=== PATIENT | male | born 1960 | race Caucasian/White ===

== ENCOUNTER 2018-10-10 09:15 | Day surgery (SDC) | payer BC ==
[~2018-10-10 09:15] MED LIST: Lactated Ringers 1,000 ML IV ONE; Lactated Ringers 1,000 ML IV SCH
[2018-10-10] MEDS ORDERED: Ketamine HCl 50 MG/ML ONE (10:24)
[2018-10-10] MEDS ORDERED: DIPRIVAN 200 MG/20 ML IV ONE ×2 (10:24→12:44)
[2018-10-10 13:33] VITALS: O2SAT 98
[2018-10-10 14:14] VITALS: BP 143/85; PULSE 88
[2018-10-10 15:25] LABS: 027 TOX PROD PRESUMPTIVE NEGATIVE (NEGATIVE); TOXIGENIC C. DIFF ORG NEGATIVE (NEGATIVE)
--- NOTE | 2018-10-11 08:46 | OP ---
PROCEDURE DATE/TIME: 10/10/2018 1230 PREOPERATIVE DIAGNOSIS: History of polyps, needs further surveillance and recent exacerbation of hemorrhoidal disease. POSTOPERATIVE DIAGNOSES: 1) Moderate internal and external hemorrhoidal disease. 2) Mild sigmoid colitis from 20 to 30 cm. 3) Mild diverticulosis. PROCEDURE: Colonoscopy with cold forceps biopsies. PROCEDURE PERFORMED BY: Gita Ruiz M.D. COMPLICATIONS: None. ESTIMATED BLOOD LOSS: Minimal. ANESTHESIA: MAC. SPECIMEN: Sigmoid colon 20 to 30 cm. HISTORY: This is a 57 year-old gentleman who has a significant history of polyps in the past. He presents for colonoscopy. Risks, benefits, alternatives have been discussed with him preoperatively as well as H&P and consent. He has been having some more symptoms of his hemorrhoids recently. DESCRIPTION OF PROCEDURE: A complete time out was performed. We then did a rectal exam. The patient has an enlarged posterior internal hemorrhoid and then he has an anterior external hemorrhoid with some inflammation. These are both inflamed. They do have some skin changes likely secondary to the inflammation and I would recommend for these to be removed. The scope was then inserted and gently advanced to the level of the cecum. He had some mild colitis from 20 to 30 cm. This did not appear to be associated at all specifically with any diverticula. Just some very mild colitis throughout this region. Outside of this he had no further colitis. The remainder of the colon looked normal. We carefully withdrew the scope. After evaluating the cecum, his appendiceal orifice and ileocecal valve looked normal. The scope was then completely withdrawn taking a circumferential view. Liquid stool throughout the colon was irrigated and suctioned. Overall the view was satisfactory. I re-visualized the area of the colitis. We took multiple cold forceps biopsies and sent these to pathology to rule out any underlying cause and then he does have the mild diverticulosis as well. I also did intubate his terminal ileum and take a biopsy here. His terminal ileum looked completely normal but we did this due to the colitis and he has had colitis incidentally in the past and we are not sure what has caused this so this was done to rule out any underlying microscopic Crohn's disease pathology. All sites from biopsies were hemostatic. The scope was able to be completely removed. The patient tolerated the procedure very well. There were no immediate complications. At this time I am going to tentatively place him on a five year colonoscopy interval. He did not have any polyps at this time and he will follow up with me for biopsy results as well as to schedule hemorrhoidectomy. PLAN: Colonoscopy in five years. Schedule hemorrhoidectomy. Await biopsy results.
[2018-10-11 13:27] LABS: Source: Feces
[2018-10-11 14:27] LABS: Giardia Antigen EIA Negative (Negative)
== END 2018-10-10 13:55 | disposition home or self-care (01) ==
LOC: SDC 09:15
PROVIDERS: ATTEND Surgery
DX: Z09 Encounter for follow-up examination after completed treatment for conditions other than malignant neoplasm (principal); K57.30 Diverticulosis of large intestine without perforation or abscess without bleeding; K52.9 Noninfective gastroenteritis and colitis, unspecified; Z86.010 Personal history of colon polyps; K64.4 Residual hemorrhoidal skin tags; K64.8 Other hemorrhoids
CPT/HCPCS: 36415; 87045; 87046; 87177; 87209; 87335; 87493; J2704

== ENCOUNTER 2018-11-01 15:17 | Emergency (ER) | payer BC ==
[2018-11-01 15:35] LABS: BASOPHIL % 0.9 % (0.0-0.4); Basophil (Absolute #) 0.09 (0-0.4); Eosinophil (Absolute #) 0.69 (0-0.5); Granulocyte Absolute (ANC) 6.65 (1.4-6.9); Granulocytes % 67.5 % (36.0-66.0); Hematocrit 49.1 % (42-50); Lymphocyte (Absolute #) 1.67 (1.0-4.6); Mean Cell Volume 85.2 fl (78-100); Mean Corpuscular Hemoglobin 29.5 pg (26-32); Mean Corpuscular Hgb Concent. 34.6 g/dl (32-36); Mean Platelet Volume 9.9 fl (6-9.5); Monocyte (Absolute #) 0.75 (0.0-1.3); Monocytes % 7.6 % (0.0-12.0); Platelet Count 251 K/mm3 (150-450); Red Blood Count 5.76 M/mm3 (4.1-5.6); Red Cell Distribution Width 12.9 % (11.5-14.0); White Blood Count 9.9 K/mm3 (4.0-10.5)
[2018-11-01] MEDS ORDERED: Zofran 4 MG/2 ML VIAL ONE (15:39)
[2018-11-01 15:47] LABS: ALBUMIN 4.6 g/dL (3.5-5.0); ANION GAP 14.4 MEQ/L (5-15); BILIRUBIN,TOTAL 1.1 mg/dL (0.2-1.3); Calcium 10.4 mg/dL (8.4-10.2); Creatinine 1 1.35 mg/dL (0.66-1.25); Potassium 3.9 mmol/L (3.5-5.1); Total Protein 8.2 g/dL (6.3-8.2)
[2018-11-01] MEDS ORDERED: Nitrostat 0.4 MG (ED) SL ONE ×3 (15:48→19:09)
[2018-11-01] MEDS ORDERED: BABY ASPIRIN 81 MG CHEW PO ONE (15:50)
[2018-11-01 15:51] VITALS: O2SAT 99
[2018-11-01] MEDS ORDERED: MORPHINE SULFATE 4 MG INJ IV ONE (15:53)
[2018-11-01] MEDS ORDERED: MORPHINE SULFATE 4 MG INJ ONE (15:54)
[2018-11-01] MEDS ORDERED: BABY ASPIRIN 81 MG CHEW ONE (15:54)
[2018-11-01 16:05] VITALS: BP 136/92; PULSE 72
[2018-11-01] MEDS ORDERED: Sodium Chloride 0.9% 1000 ML 1,000 ML ONE (16:17)
--- NOTE | 2018-11-01 16:21 | ERPHSYRPT ---
- History of Present Illness Time Seen by Provider: 11/01/18 15:35 Historian: patient Exam Limitations: no limitations Patient Subjective Stated Complaint: Sudden onset pain to medial chest, left shoulder and arm pain, pain between shoulder blades, hx of 1 stent which has been placed 3 times in the maker Triage Nursing Assessment: Pt walked into the ER stating that something was sitting on his chest, upon getting here he began having pain in his left arm and shoulder that radiated between his shoulder blades, upon arrival he was tachycardic and hypertensive and was given a nitro and 4 baby aspirin when approx 3 minutes later he began vomiting and became very diaphoretic, pulses normal, skin turning slightly marin Physician History: At work today; heavy CP - weight on chest; nauseated, diaphoretic - history of stents X 3 Activities at Onset: activity (Had been shoveling prior - resting when this hit him) Quality: pressure, tightness Location: substernal, shoulder (Left), back Chest Pain Radiation: arm (Left) Severity of Pain-Max: moderate Severity of Pain-Current: moderate Nitro Today/Relief: no nitro taken today Aspirin Treatment Today: 81 mg x 3, provided by ED Allergies/Adverse Reactions: No Known Drug Allergies Allergy (Verified 11/04/18 11:14) Home Medications: Aspirin EC 81 mg [Ecotrin 81 mg] 81 mg PO DAILY 11/04/18 [History] Atorvastatin Calcium [Lipitor] 80 mg PO HS 11/04/18 [History] Lisinopril 20 mg [Zestril 20 MG] 20 mg PO DAILY 11/04/18 [History] Metoprolol Tartrate 25 mg [Lopressor 25MG Tab] 25 mg PO BID 11/04/18 [ History] Nitroglycerin 0.4 mg Tablet [Nitrostat 0.4 MG Tablet] 0.4 mg SL UD [History] Ticagrelor [Brilinta] 90 mg PO BID 11/04/18 [History] Hx Tetanus, Diphtheria Vaccination/Date Given: No Hx Influenza Vaccination/Date Given: Yes Hx Pneumococcal Vaccination/Date Given: No - Review of Systems Constitutional: Malaise Respiratory: Dyspnea (uncomfortable breathing with apparent CP) Cardiac: Chest Pain (to L shoulder and L arm) All Other Systems: Reviewed and Negative - Past Medical History Pertinent Past Medical History: Yes Neurological History: No Pertinent History ENT History: No Pertinent History Cardiac History: Angina, Hypertension, Myocardial Infarction ([place]) Respiratory History: No Pertinent History Endocrine Medical History: No Pertinent History Musculoskeletal History: Arthritis GI Medical History: Other History: No Pertinent History Psycho-Social History: No Pertinent History Male Reproductive Disorders: No Pertinent History Other Medical History: FELL 20' IN 1997 WITH RESULTANT L3-L4 FXS/ RC TEAR. SPONDYLOLISTHESIS. 3 CARDIAC STENTS - 2010/2011/2012; CARDIAC CATH , colonoscopy, - Past Surgical History Past Surgical History: Yes Neuro Surgical History: No Pertinent History Cardiac: Cardiac Catheterization, Cardiac Stent Respiratory: No Pertinent History Gastrointestinal: Appendectomy Genitourinary: No Pertinent History Musculoskeletal: Orthopedic Surgery Male Surgical History: No Pertinent History Other Surgical History: left knee arthroscopy and right rotator cuff repair, colonoscopy with bx. right hip replacement - Social History Smoking Status: Never smoker Exposure to second hand smoke: No Drug Use: none Patient Lives Alone: Yes - Nursing Vital Signs Nursing Vital Signs: Initial Vital Signs Pulse Rate 107 H 11/01/18 15:28 Respiratory Rate 12 11/01/18 15:28 Blood Pressure 182/123 11/01/18 15:28 O2 Sat by Pulse Oximetry 96 11/01/18 15:28 Pain Scale Pain Intensity 2 - Physical Exam General Appearance: moderate distress (very uncomfortable feeling - heavy weight on chest), alert Neck Exam: normal inspection, full range of motion Respiratory Exam: normal breath sounds, lungs clear, airway intact Cardiovascular Exam: regular rate/rhythm, normal peripheral pulses, tachycardia , No edema Gastrointestinal/Abdomen Exam: soft Extremity Exam: normal inspection, normal range of motion Neurologic Exam: alert, oriented x 3, cooperative Skin Exam: normal color, warm, diaphoresis SpO2 Interpretation: normal SpO2: 99 O2 Delivery: Room Air - Course Nursing assessment & vital signs reviewed: Yes EKG Interpreted by Me: RATE ([id number]), Sinus Tach, NORMAL QRS, NORMAL ST-T - Radiology Exams Chest X-ray Interpretation: Interpreted by me, Negative Ordered Tests: Medication Summary Discontinued Medications Generic Name Dose Route Start Last Admin Trade Name Freq PRN Reason Stop Dose Admin Aspirin 324 mg 11/01/18 15:50 11/01/18 15:51 Baby Aspirin 81 Mg Chew PO 11/01/18 15:51 324 mg STAT ONE Administration Aspirin Confirm 11/01/18 15:54 Baby Aspirin 81 Mg Chew Administered 11/01/18 15:55 Dose 324 mg .ROUTE .STK-MED ONE Sodium Chloride Confirm 11/01/18 16:17 Sodium Chloride 0.9% 1000 Ml Administered 11/01/18 16:18 Dose 1,000 mls @ ud .ROUTE .STK-MED ONE Morphine Sulfate 4 mg 11/01/18 15:53 11/01/18 15:59 Morphine Sulfate 4 Mg Inj IV 11/01/18 15:54 4 mg STAT ONE Administration Morphine Sulfate Confirm 11/01/18 15:54 Morphine Sulfate 4 Mg Inj Administered 11/01/18 15:55 Dose 4 mg .ROUTE .STK-MED ONE Nitroglycerin 0.4 mg 11/01/18 15:48 11/01/18 15:51 Nitrostat 0.4 Mg (Ed) SL 11/01/18 15:49 0.4 mg STAT ONE Administration Nitroglycerin Confirm 11/01/18 15:54 Nitrostat 0.4 Mg (Ed) Administered 11/01/18 15:55 Dose 0.4 mg SL .STK-MED ONE Nitroglycerin Confirm 11/01/18 19:09 Nitrostat 0.4 Mg (Ed) Administered 11/01/18 19:10 Dose 0.4 mg SL .STK-MED ONE Ondansetron HCl Confirm 11/01/18 15:39 Zofran 4 Mg/2 Ml Vial Administered 11/01/18 15:40 Dose 4 mg .ROUTE .STK-MED ONE Lab/Rad Data: Laboratory Result Diagrams 11/01/18 15:32 11/01/18 15:32 Laboratory Results 11/01/18 11/01/18 11/01/18 Range/Units 15:32 15:32 15:32 WBC 9.9 (4.0-10.5) K/mm3 RBC 5.76 H (4.1-5.6) M/mm3 Hgb 17.0 (12.5-18.0) gm/dl Hct 49.1 (42-50) % MCV 85.2 (78-100) fl MCH 29.5 (26-32) pg MCHC 34.6 (32-36) g/dl RDW 12.9 (11.5-14.0) % Plt Count 251 (150-450) K/mm3 MPV 9.9 H (6-9.5) fl Gran % 67.5 H (36.0-66.0) % Eos # (Auto) 0.69 H (0-0.5) Absolute Lymphs (auto) 1.67 (1.0-4.6) Absolute Monos (auto) 0.75 (0.0-1.3) Lymphocytes % 17.0 L (24.0-44.0) % Monocytes % 7.6 (0.0-12.0) % Eosinophils % 7.0 H (0.00-5.0) % Basophils % 0.9 (0.0-0.4) % Absolute Granulocytes 6.65 (1.4-6.9) Basophils # 0.09 (0-0.4) Sodium 142 (137-145) mmol/L Potassium 3.9 (3.5-5.1) mmol/L Chloride 109 H (98-107) mmol/L Carbon Dioxide 23 (22-30) mmol/L Anion Gap 14.4 (5-15) MEQ/L BUN 17 (9-20) mg/dL Creatinine 1.35 H (0.66-1.25) mg/dL Estimated GFR 57.5 ML/MIN Glucose 104 (74-106) mg/dL Calcium 10.4 H (8.4-10.2) mg/dL Total Bilirubin 1.10 (0.2-1.3) mg/dL AST 55 (17-59) U/L ALT 52 H (0-50) U/L Alkaline Phosphatase 71 (38-126) U/L Troponin I 0.015 (0.000-0.034) ng/mL Serum Total Protein 8.2 (6.3-8.2) g/dL Albumin 4.6 (3.5-5.0) g/dL - Progress Progress Note: 11/01/18 16:32 Initial EKG sinus tachy - no ST elevation; got ASA, NTG - BP dropped significantly with NTG. EKG #2 non specific; after BP drop EKG #3 (Right Sided ) and #4 done...slight ST elevation Lead II and V4, V5. 11/05/18 21:43 Faxed EKG to [facility]; agree probable Stemi - Dr. 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 Discussed with Dr.: Other (Dr. Harris/Jade) Will see patient in: other (slabbing machine operator [facility]) - Departure Departure Disposition: Transfer ([facility] refuse laborer) Clinical Impression: STEMI (ST elevation myocardial infarction) Qualifiers: Involved coronary artery: unspecified coronary artery Qualified Code(s): I21.3 - ST elevation (STEMI) myocardial infarction of unspecified site Condition: Serious Critical Care Time: Yes Critical Care Time(excluding separately billable procedures): Critical 30-74 mins (Clinical picture eval, EKG reviews, discussion with [facility]/Uke Operator) Referrals: DANNIELLE WAGNER MD [Primary Care Provider] -
--- NOTE | 2018-11-01 16:38 | XRAY ---
Indication: Chest pain. Comparison: June 26, 2015. Portable chest is clear. Heart is not enlarged again with coronary stent graft. Bony thorax intact. No new/acute findings. Impression: Nonacute chest.
== END 2018-11-01 16:23 | disposition short-term general hospital (02) ==
LOC: ED 15:17
DX: I21.3 ST elevation (STEMI) myocardial infarction of unspecified site (principal)
CPT/HCPCS: 36000; 36415; 71045; 80053; 84484; 85025; 93005; 93041; 96374; 96375; 99285; J2270; J2405; A9270-GY

== ENCOUNTER 2018-11-04 10:31 | Emergency (ER) | payer BC ==
--- NOTE | 2018-11-04 11:08 | ERPHSYRPT ---
- History of Present Illness Time Seen by Provider: 11/04/18 10:50 Source: patient, family Exam Limitations: no limitations Physician History: Patient has had difficulty with elevated blood pressure today. Patient had a STEMI 3 days ago and was started on multiple antihypertensive medications. Patient had a headache this morning, but denies any other symptoms. Timing/Duration: today, hour(s) (2) Quality: aching Severity of Pain-Max: moderate Severity of Pain-Current: mild Recent Head Trauma: no recent headache/trauma Modifying Factors: Improves With: other (patient has been taking his medication) . Worsens With: cold therapy, exposure to light, immobilization, medication, movement, rest, noise, position Associated Symptoms: No confusion, No dizziness, No fatigue, No facial pain, No fever/chills, No flushing, No light-headedness, No loss of consciousness, No nausea/vomiting, No nasal congestion, No nasal drainage, No neck pain, No numbness in legs/feet, No rash, No sweating, No scotoma, No seizures, No sinus infection, No sensitive to light, No speech problems, No stiff neck, No trouble walking, No vision changes, No visual disturbance, No weakness Previous symptoms: no prior history Allergies/Adverse Reactions: No Known Drug Allergies Allergy (Verified 11/04/18 11:14) Home Medications: Aspirin EC 81 mg [Ecotrin 81 mg] 81 mg PO DAILY 11/04/18 [History] Atorvastatin Calcium [Lipitor] 80 mg PO HS 11/04/18 [History] Lisinopril 20 mg [Zestril 20 MG] 20 mg PO DAILY 11/04/18 [History] Metoprolol Tartrate 25 mg [Lopressor 25MG Tab] 25 mg PO BID 11/04/18 [ History] Nitroglycerin 0.4 mg Tablet [Nitrostat 0.4 MG Tablet] 0.4 mg SL UD [History] Ticagrelor [Brilinta] 90 mg PO BID 11/04/18 [History] Hx Tetanus, Diphtheria Vaccination/Date Given: No Hx Influenza Vaccination/Date Given: Yes Hx Pneumococcal Vaccination/Date Given: No - Review of Systems Constitutional: No Fever, No Chills Eyes: No Symptoms, No Eye Pain, No Eye Redness, No Photophobia, No Vision Changes Ears, Nose, & Throat: No Symptoms, No Nose Congestion, No Sinus Drainage, No Mouth Swelling, No Throat Pain, No Throat Swelling, No Painful Swallowing Respiratory: No Cough, No Dyspnea, No Dyspnea on Exertion (REYNA) Cardiac: No Chest Pain, No Edema, No Syncope Abdominal/Gastrointestinal: No Abdominal Pain, No Nausea, No Vomiting, No Diarrhea Genitourinary Symptoms: No Dysuria, No Hematuria, No Urinary Retention Musculoskeletal: No Back Pain, No Neck Pain Skin: No Rash Neurological: No Dizziness, No Focal Weakness, No Sensory Changes Psychological: No Symptoms Endocrine: No Symptoms Hematologic/Lymphatic: No Easy Bleeding, No Easy Bruising All Other Systems: Reviewed and Negative - Past Medical History Pertinent Past Medical History: Yes Neurological History: No Pertinent History ENT History: No Pertinent History Cardiac History: Angina, Hypertension, Myocardial Infarction ([place]) Respiratory History: No Pertinent History Endocrine Medical History: No Pertinent History Musculoskeletal History: Arthritis GI Medical History: Other History: No Pertinent History Psycho-Social History: No Pertinent History Male Reproductive Disorders: No Pertinent History Other Medical History: FELL 20' IN 1997 WITH RESULTANT L3-L4 FXS/ RC TEAR. SPONDYLOLISTHESIS. 3 CARDIAC STENTS - 2010/2011/2012; CARDIAC CATH , colonoscopy, - Past Surgical History Past Surgical History: Yes Neuro Surgical History: No Pertinent History Cardiac: Cardiac Catheterization, Cardiac Stent Respiratory: No Pertinent History Gastrointestinal: Appendectomy Genitourinary: No Pertinent History Musculoskeletal: Orthopedic Surgery Male Surgical History: No Pertinent History Other Surgical History: left knee arthroscopy and right rotator cuff repair, colonoscopy with bx. right hip replacement - Social History Smoking Status: Never smoker Exposure to second hand smoke: No Drug Use: none Patient Lives Alone: Yes - Nursing Vital Signs Nursing Vital Signs: Initial Vital Signs Temperature 98.5 F 11/04/18 10:34 Pulse Rate 60 11/04/18 10:34 Respiratory Rate 20 11/04/18 10:34 Blood Pressure 183/102 11/04/18 10:34 O2 Sat by Pulse Oximetry 99 11/04/18 10:34 Pain Scale Pain Intensity 0 - Physical Exam General Appearance: no apparent distress Eye Exam: PERRL/EOMI Ears, Nose, Throat Exam: normal ENT inspection, moist mucous membranes Neck Exam: normal inspection, supple, full range of motion, No meningismus Respiratory Exam: normal breath sounds, lungs clear Cardiovascular Exam: regular rate/rhythm, normal heart sounds Gastrointestinal/Abdominal Exam: soft, No tenderness, No distention Back Exam: normal inspection, normal range of motion Mental Status Exam: alert, oriented x 3, cooperative store stocker Exam: normal speech, PERRL, No facial droop Coordination/Gait Exam: normal cerebellar function Motor/Sensory Exam: no motor deficit, no sensory deficit Skin Exam: normal color, warm, dry, No rash - Course Nursing assessment & vital signs reviewed: Yes EKG Interpreted by Me: RATE (65), Sinus Rhythm, NORMAL AXIS, NORMAL INTERVALS, NORMAL QRS, NORMAL ST-T - CT Exams Head CT Interpretation: Negative, No/Intracranial Hemorrhag, Other (Per Radiologist Interpretation, negative for any signs of mass, hemorrhage or ischemia or any other abnormalities) Ordered Tests: Active Orders 24 hr Category Date Time Status Shirt Sewer STAT Care 11/04/18 11:01 Active EKG-ER Only STAT Care 11/04/18 11:00 Active IV Insertion STAT Care 11/04/18 11:00 Active HEAD WITHOUT CONTRAST [CT] Stat Exams 11/04/18 11:02 Completed CBC W DIFF Stat Lab 11/04/18 11:10 Completed CK-Creatinine Phosphokinase Stat Lab 11/04/18 11:10 Completed CMP Stat Lab 11/04/18 11:10 Completed NT PRO BNP Stat Lab 11/04/18 11:10 Completed PROTIME WITH INR Stat Lab 11/04/18 11:10 Received PTT Stat Lab 11/04/18 11:10 Received TROPONIN Q3H Lab 11/04/18 11:10 Completed TROPONIN Q3H Lab 11/04/18 14:15 Ordered TROPONIN Q3H Lab 11/04/18 17:15 Ordered TROPONIN Q3H Lab 11/04/18 20:15 Ordered TROPONIN Q3H Lab 11/04/18 23:15 Ordered Medication Summary Discontinued Medications Generic Name Dose Route Start Last Admin Trade Name Freq PRN Reason Stop Dose Admin Hydralazine HCl 10 mg 11/04/18 11:00 11/04/18 11:34 Apresoline 20 Mg/Ml Inj IV 11/04/18 11:01 10 mg STAT ONE Administration Hydralazine HCl Confirm 11/04/18 11:30 Apresoline 20 Mg/Ml Inj Administered 11/04/18 11:31 Dose 20 mg .ROUTE .STK-MED ONE Lab/Rad Data: Laboratory Result Diagrams 11/04/18 11:10 11/04/18 11:10 Laboratory Results 11/04/18 11/04/18 11/04/18 Range/Units 11:10 11:10 11:10 WBC 6.9 (4.0-10.5) K/mm3 RBC 5.48 (4.1-5.6) M/mm3 Hgb 16.2 (12.5-18.0) gm/dl Hct 48.5 (42-50) % MCV 88.5 (78-100) fl MCH 29.6 (26-32) pg MCHC 33.4 (32-36) g/dl RDW 13.0 (11.5-14.0) % Plt Count 225 (150-450) K/mm3 MPV 10.1 H (6-9.5) fl Gran % 66.7 H (36.0-66.0) % Eos # (Auto) 0.79 H (0-0.5) Absolute Lymphs (auto) 0.91 L (1.0-4.6) Absolute Monos (auto) 0.55 (0.0-1.3) Lymphocytes % 13.2 L (24.0-44.0) % Monocytes % 8.0 (0.0-12.0) % Eosinophils % 11.5 H (0.00-5.0) % Basophils % 0.6 (0.0-0.4) % Absolute Granulocytes 4.60 (1.4-6.9) Basophils # 0.04 (0-0.4) Sodium 141 (137-145) mmol/L Potassium 4.1 (3.5-5.1) mmol/L Chloride 103 (98-107) mmol/L Carbon Dioxide 30 (22-30) mmol/L Anion Gap 12.7 (5-15) MEQ/L BUN 13 (9-20) mg/dL Creatinine 1.11 (0.66-1.25) mg/dL Estimated GFR > 60.0 ML/MIN Glucose 98 (74-106) mg/dL Calcium 9.9 (8.4-10.2) mg/dL Total Bilirubin 1.10 (0.2-1.3) mg/dL AST 38 (17-59) U/L ALT 46 (0-50) U/L Alkaline Phosphatase 61 (38-126) U/L Creatine Kinase 90 (55-170) U/L Troponin I 0.844 H* (0.000-0.034) ng/mL NT-Pro-B Natriuret Pep 72.9 (0-900) pg/mL Serum Total Protein 7.4 (6.3-8.2) g/dL Albumin 4.3 (3.5-5.0) g/dL - Progress Progress: improved (spoke with Dr Sue, [facility] who performed patient's catheterization. Dr Sue recommended increasing Lisinopril to 40mg once daily and the elevated troponin is on a decline as his second troponin at the hospital on 11/01/2018 was 6 and the elevated number is not a concern today), re-examined Air Movement: good Progress Note: 11/04/18 11:49 patient denies any headache, chest pain, palpitations, shortness of breath, no pain or back pain. The patient is asymptomatic throughout his visit in the emergency department. Patient's blood pressure is 146/93. Blood Culture(s) Obtained: No Antibiotics given: No Discussed with Dr.: Other (Dr Sue, Cardiology) - Departure Departure Disposition: Home Clinical Impression: Hypertensive urgency Headache Qualifiers: Headache type: unspecified Headache chronicity pattern: acute headache Intractability: not intractable Qualified Code(s): R51 - Headache Condition: Good Critical Care Time: No Referrals: DANNIELLE WAGNER MD [Primary Care Provider] - Follow Up with PCP/3 days (Dr Demetris Sue, Cardiology, as scheduled on 11/10/2018.) Instructions: Malignant Hypertension (DC) Additional Instructions: return immediately to the emergency room if any worsening headache, new chest pain, any shortness of breath, new abdominal pain, new back pain, or any other concerning signs or symptoms that were not present at today's emergency department visit for immediate reevaluation in the emergency department.
[2018-11-04 11:23] LABS: BASOPHIL % 0.6 % (0.0-0.4); Basophil (Absolute #) 0.04 (0-0.4); Eosinophil % 11.5 % (0.00-5.0); Eosinophil (Absolute #) 0.79 (0-0.5); Granulocytes % 66.7 % (36.0-66.0); Hematocrit 48.5 % (42-50); Hemoglobin 16.2 gm/dl (12.5-18.0); Lymphocyte (Absolute #) 0.91 (1.0-4.6); Lymphocytes % 13.2 % (24.0-44.0); Mean Cell Volume 88.5 fl (78-100); Mean Corpuscular Hemoglobin 29.6 pg (26-32); Mean Corpuscular Hgb Concent. 33.4 g/dl (32-36); Mean Platelet Volume 10.1 fl (6-9.5); Monocyte (Absolute #) 0.55 (0.0-1.3); Platelet Count 225 K/mm3 (150-450); Red Blood Count 5.48 M/mm3 (4.1-5.6); White Blood Count 6.9 K/mm3 (4.0-10.5)
[2018-11-04] MEDS ORDERED: APRESOLINE 20 MG/ML INJ ONE (11:30)
[2018-11-04 11:34] LABS: ALBUMIN 4.3 g/dL (3.5-5.0); ALKALINE PHOSPHATASE 61 U/L (38-126); ANION GAP 12.7 MEQ/L (5-15); BLOOD UREA NITROGEN 13 mg/dL (9-20); CHLORIDE 103 mmol/L (98-107); CK-Creatinine Phosphokinase 90 U/L (55-170); Calcium 9.9 mg/dL (8.4-10.2); Carbon Dioxide 30 mmol/L (22-30); Creatinine 1 1.11 mg/dL (0.66-1.25); Glucose 98 mg/dL (74-106); NT PRO BNP 72.9 pg/mL (0-900); Potassium 4.1 mmol/L (3.5-5.1); SGOT/AST 38 U/L (17-59); SGPT/ALT 46 U/L (0-50); SODIUM 141 mmol/L (137-145); Total Protein 7.4 g/dL (6.3-8.2)
[2018-11-04] MEDS: APRESOLINE 20 MG/ML INJ IV ONE (11:34)
[2018-11-04 11:41] LABS: INR 0.98 (0.8-3.0); PROTIME 11.1 SECONDS (8.83-12.87)
[2018-11-04 11:43] LABS: PTT 33.1 SECONDS (24.1-36.1)
--- NOTE | 2018-11-04 11:47 | XRAY ---
Indication: Headache. High blood pressure. Multiple contiguous axial images obtained through the head without contrast. Comparison: None Normal appearing brain parenchyma, ventricles, and bony calvarium. Visualized paranasal sinuses and mastoid air cells are clear. Impression: Normal CT head without contrast exam. CTDI 70.48
[2018-11-04 12:17] VITALS: PULSE 82
[2018-11-04 12:33] VITALS: BP 145/93; O2SAT 99
== END 2018-11-04 12:29 | disposition home or self-care (01) ==
LOC: ED 10:31
DX: I16.0 Hypertensive urgency (principal); R51 Headache
CPT/HCPCS: 36000; 36415; 70450; 80053; 82550; 83880; 84484; 85025; 85610; 85730; 93005; 93041; 96374; 99284; J0360

== ENCOUNTER 2020-01-05 19:14 | Emergency (ER) | payer BC ==
[2020-01-05] MEDS ORDERED: MORPHINE SULFATE 4 MG INJ IV ONE (19:28)
[2020-01-05] MEDS ORDERED: Zofran 4 MG/2 ML VIAL IV ONE (19:29)
[2020-01-05] MEDS ORDERED: Zofran 4 MG/2 ML VIAL ONE (19:30)
[2020-01-05] MEDS ORDERED: MORPHINE SULFATE 4 MG INJ ONE (19:30)
[2020-01-05] MEDS ORDERED: BABY ASPIRIN 81 MG CHEW PO ONE (19:31)
[2020-01-05 19:44] LABS: Absolute Neutrophil Ct (ANC) 5.96 (1.4-6.9); BASOPHIL % 1.1 % (0.0-0.4); Eosinophil % 4.5 % (0.00-5.0); Hematocrit 37.7 % (42-50); Hemoglobin 12.2 gm/dl (12.5-18.0); Lymphocyte (Absolute #) 1.76 (1.0-4.6); Lymphocytes % 19.7 % (24.0-44.0); Mean Cell Volume 89.5 fl (78-100); Mean Corpuscular Hgb Concent. 32.4 g/dl (32-36); Mean Platelet Volume 9.4 fl (7.5-11.0); Monocyte (Absolute #) 0.72 (0.0-1.3); Monocytes % 8.1 % (0.0-12.0); Neutrophil % 66.6 % (36.0-66.0); Platelet Count 479 K/mm3 (150-450); Red Blood Count 4.21 M/mm3 (4.1-5.6); Red Cell Distribution Width 13.2 % (11.5-14.0); White Blood Count 8.9 K/mm3 (4.0-10.5)
[2020-01-05 19:53] LABS: INR 1.18 (0.8-3.0); PROTIME 13.3 SECONDS (8.83-12.87)
--- NOTE | 2020-01-05 19:53 | ERPHSYRPT ---
- History of Present Illness Historian: patient Exam Limitations: no limitations Patient Subjective Stated Complaint: pt states has been having pain between his shoulder blades and down posterior arms, does come around to chest at times Triage Nursing Assessment: pt alert and oriented, answers questions approp. pt ambulatory with steady gait noted. respirations nonlabored with lungs cta. skin warm and slightly moist. heart rate 96 sinus rhythm on monitor. Physician History: 59 yo wm w mid-scapular pain x 1 hour w radiation to B triceps area. He denies chest pain/dyspnea/N/V but states mildly diaphoretic. Pain described as a dull, ache and 3/10. He had an, uneventful CABG at [facility] 15 days ago. Pt has a h/o NM/Stents/HTN/hyperlipidemia/FH CAD. He has never smoked. Timing/Duration: hour(s) (1Hr) Activities at Onset: rest Quality: aching, dullness Location: back Chest Pain Radiation: arm (B triceps) Severity of Pain-Max: moderate Severity of Pain-Current: mild Modifying Factors: Improves With: nothing Associated Symptoms: diaphoresis, back pain, No nausea, No vomiting, No palpitations, No heartburn, No abdominal pain, No shortness of breath, No cough, No hurts to breathe, No chills, No fever, No fatigue, No weakness, No swelling/lump in chest, No syncope, No rash, No headache, No dizziness, No edema Prior Chest Pain/Cardiac Workup: recently seen/treated (CABG 15 days ago) Nitro Today/Relief: no nitro taken today Aspirin Treatment Today: 81 mg x 1 Allergies/Adverse Reactions: No Known Drug Allergies Allergy (Verified 01/05/20 19:33) Home Medications: Aspirin EC 81 mg [Ecotrin 81 mg] 81 mg PO DAILY 11/04/18 [History] Atorvastatin Calcium [Lipitor] 40 mg PO HS 11/04/18 [History] Metoprolol Tartrate 25 mg [Lopressor 25MG Tab] 25 mg PO BID 11/04/18 [Hi story] Nitroglycerin 0.4 mg Tablet [Nitrostat 0.4 MG Tablet] 0.4 mg SL UD 11/04/18 [History] Acetaminophen 500 mg [Tylenol Extra Strength 500 mg] 500 mg PO Q4-6HPRN PRN 01/05/20 [History] Famotidine [Pepcid AC] 10 mg PO BID 01/05/20 [History] Tramadol HCl 50 mg [Ultram 50 mg] 50 mg PO Q4H PRN PRN 01/05/20 [History] Hx Tetanus, Diphtheria Vaccination/Date Given: No Hx Influenza Vaccination/Date Given: Yes Hx Pneumococcal Vaccination/Date Given: No Travel Risk - International Travel Have you traveled outside of the country in past 3 weeks: No - Coronavirus Screening Are you exhibiting any of the following symptoms?: No Close contact with a COVID-19 positive Pt in past 14-21 Days: No - Review of Systems Constitutional: No Symptoms Eyes: No Symptoms Ears, Nose, & Throat: No Symptoms Respiratory: No Symptoms Cardiac: No Chest Pain, No Edema, No Palpitations, No Syncope, No Orthopnea Abdominal/Gastrointestinal: No Symptoms Genitourinary Symptoms: No Symptoms Musculoskeletal: No Symptoms Skin: No Symptoms Neurological: No Symptoms Psychological: No Symptoms, Hallucinations Endocrine: Excessive Sweating Hematologic/Lymphatic: No Symptoms Immunological/Allergic: No Symptoms - Past Medical History Pertinent Past Medical History: Yes Neurological History: No Pertinent History ENT History: No Pertinent History Cardiac History: Angina, Arrhythmia, Coronary Artery Disease, Hypertension, My ocardial Infarction ([place]) Respiratory History: Bronchitis, Sleep Apnea Endocrine Medical History: No Pertinent History Musculoskeletal History: Arthritis, Fractures GI Medical History: Other History: No Pertinent History Psycho-Social History: No Pertinent History Male Reproductive Disorders: No Pertinent History Other Medical History: 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 right hip replacement - Social History Smoking Status: Never smoker Exposure to second hand smoke: No Drug Use: none Patient Lives Alone: Yes Significant Family History: no pertinent family hx - Nursing Vital Signs Nursing Vital Signs: Initial Vital Signs Pulse Rate 96 H 01/05/20 19:15 Respiratory Rate 18 01/05/20 19:15 Blood Pressure 177/107 01/05/20 19:15 O2 Sat by Pulse Oximetry 100 01/05/20 19:15 Pain Scale Pain Intensity 2 - Physical Exam General Appearance: no apparent distress Eye Exam: PERRL/EOMI Ears, Nose, Throat Exam: normal ENT inspection, TMs normal, pharynx normal Neck Exam: normal inspection, non-tender, supple, full range of motion, No meningismus, No mass, No Brudzinski, No Kernig's, No carotid bruit, No JVD Respiratory Exam: normal breath sounds, lungs clear, airway intact Cardiovascular Exam: regular rate/rhythm, normal heart sounds, normal peripheral pulses, No murmur Gastrointestinal/Abdomen Exam: soft, normal bowel sounds, No tenderness Back Exam: normal inspection, normal range of motion, vertebral tenderness Extremity Exam: normal inspection, normal range of motion Neurologic Exam: alert, oriented x 3, cooperative, hospital nurse liaison II-XII nml as tested, normal mood/affect, nml station & gait, sensation nml, No motor deficits, No sensory deficit Skin Exam: normal color, warm, dry, other (Sternotomy incision C/D/I) Lymphatic Exam: adenopathy SpO2 Interpretation: normal SpO2: 100 O2 Delivery: Room Air - Course Nursing assessment & vital signs reviewed: Yes EKG Interpreted by Me: RATE (NSR/R96/Incomplet RBBB/Normal QT-QTc/Non-specific T-wave abnornality) Ordered Tests: Active Orders 24 hr Category Date Time Status Annealing Furnace Operator STAT Care 01/05/20 19:19 Completed EKG-ER Only STAT Care 01/05/20 19:19 Completed IV Insertion STAT Care 01/05/20 19:19 Completed IV Insertion-2nd Peripheral STAT Care 01/05/20 19:32 Completed CHEST 1 VIEW (PORTABLE) Stat Exams 01/05/20 19:19 Taken CTA CHEST W AND/OR WO [CT] Stat Exams 01/05/20 20:19 Taken CBC W DIFF Stat Lab 01/05/20 19:19 Completed CMP Stat Lab 01/05/20 19:30 Completed NT PRO BNP Stat Lab 01/05/20 19:30 Completed PROTIME WITH INR Stat Lab 01/05/20 19:30 Completed PTT Stat Lab 01/05/20 19:30 Completed TROPONIN Q3H Lab 01/05/20 19:30 Completed TROPONIN Q3H Lab 01/05/20 21:36 Completed TROPONIN Q3H Lab 01/05/20 23:11 Completed TROPONIN Q3H Lab 01/06/20 01:57 Completed Medication Summary Discontinued Medications Generic Name Dose Route Start Last Admin Trade Name Pari PRN Reason Stop Dose Admin Aspirin 324 mg 01/05/20 19:31 01/05/20 19:32 Baby Aspirin 81 Mg Chew PO 01/05/20 19:32 324 mg STAT ONE Administration Clopidogrel Bisulfate 600 mg 01/06/20 00:37 01/06/20 00:59 Plavix 75 Mg Tablet PO 01/06/20 00:38 600 mg STAT ONE Administration Heparin Sodium (Beef Lung) 5,000 unit 01/06/20 00:31 01/06/20 00:41 Heparin 5000 Units/0.5 Ml (High Risk Med) IV 01/06/20 00:32 5,000 unit STAT ONE Administration Heparin Sodium (Beef Lung) Confirm 01/06/20 00:38 Heparin 5000 Units/0.5 Ml (High Risk Med) Administered 01/06/20 00:39 Dose 5,000 unit .ROUTE .STK-MED ONE Sodium Chloride 1,000 mls @ 999 mls/hr 01/05/20 21:55 01/06/20 02:25 Sodium Chloride 0.9% 1000 Ml IV 01/05/20 22:55 Infused .Q1H1M STA Infusion Sodium Chloride Confirm 01/05/20 21:57 Sodium Chloride 0.9% 1000 Ml Administered 01/05/20 21:58 Dose 1,000 mls @ ud .ROUTE .STK-MED ONE Heparin Sodium/Dextrose 25,000 units in 250 mls @ 10 mls/hr 01/06/20 01:00 01/06/20 00:42 Heparin 25,000 Units/D5w 250ml Premix IV 02/05/20 00:59 10 mls/hr .Q24H SANTOS 10 mls/hr Administration Heparin Sodium/Dextrose Confirm 01/06/20 00:38 Heparin 25,000 Units/D5w 250ml Premix Administered 01/06/20 00:39 Dose 25,000 units in 250 mls @ ud IV .STK-MED ONE Morphine Sulfate 4 mg 01/05/20 19:28 01/05/20 19:32 Morphine Sulfate 4 Mg Inj IV 01/05/20 19:29 4 mg STAT ONE Administration Morphine Sulfate Confirm 01/05/20 19:30 Morphine Sulfate 4 Mg Inj Administered 01/05/20 19:31 Dose 4 mg .ROUTE .STK-MED ONE Ondansetron HCl 4 mg 01/05/20 19:29 01/05/20 19:31 Zofran 4 Mg/2 Ml Vial IV 01/05/20 19:30 4 mg STAT ONE Administration Ondansetron HCl Confirm 01/05/20 19:30 Zofran 4 Mg/2 Ml Vial Administered 01/05/20 19:31 Dose 4 mg .ROUTE .STK-MED ONE Lab/Rad Data: Laboratory Result Diagrams 01/05/20 19:19 01/05/20 19:30 Laboratory Results 01/06/20 01/05/20 01/05/20 Range/Units 01:57 23:11 21:36 WBC (4.0-10.5) K/mm3 RBC (4.1-5.6) M/mm3 Hgb (12.5-18.0) gm/dl Hct (42-50) % MCV (78-100) fl MCH (26-32) pg MCHC (32-36) g/dl RDW (11.5-14.0) % Plt Count (150-450) K/mm3 MPV (7.5-11.0) fl Gran % (36.0-66.0) % Eos # (Auto) (0-0.5) Absolute Lymphs (auto) (1.0-4.6) Absolute Monos (auto) (0.0-1.3) Lymphocytes % (24.0-44.0) % Monocytes % (0.0-12.0) % Eosinophils % (0.00-5.0) % Basophils % (0.0-0.4) % Absolute Granulocytes (1.4-6.9) Basophils # (0-0.4) PT (8.83-12.87) SECONDS INR (0.8-3.0) APTT (24.1-36.1) SECONDS Sodium (137-145) mmol/L Potassium (3.5-5.1) mmol/L Chloride (98-107) mmol/L Carbon Dioxide (22-30) mmol/L Anion Gap (5-15) MEQ/L BUN (9-20) mg/dL Creatinine (0.66-1.25) mg/dL Estimated GFR ML/MIN Glucose (74-106) mg/dL Calcium (8.4-10.2) mg/dL Total Bilirubin (0.2-1.3) mg/dL AST (17-59) U/L ALT (0-50) U/L Alkaline Phosphatase (38-126) U/L Troponin I 0.473 H* 0.068 H* 0.024 (0.000-0.034) ng/mL NT-Pro-B Natriuret Pep (0-900) pg/mL Serum Total Protein (6.3-8.2) g/dL Albumin (3.5-5.0) g/dL 01/05/20 01/05/20 01/05/20 Range/Units 19:30 19:30 19:30 WBC (4.0-10.5) K/mm3 RBC (4.1-5.6) M/mm3 Hgb (12.5-18.0) gm/dl Hct (42-50) % MCV (78-100) fl MCH (26-32) pg MCHC (32-36) g/dl RDW (11.5-14.0) % Plt Count (150-450) K/mm3 MPV (7.5-11.0) fl Gran % (36.0-66.0) % Eos # (Auto) (0-0.5) Absolute Lymphs (auto) (1.0-4.6) Absolute Monos (auto) (0.0-1.3) Lymphocytes % (24.0-44.0) % Monocytes % (0.0-12.0) % Eosinophils % (0.00-5.0) % Basophils % (0.0-0.4) % Absolute Granulocytes (1.4-6.9) Basophils # (0-0.4) PT 13.3 H (8.83-12.87) SECONDS INR 1.18 (0.8-3.0) APTT 29.0 (24.1-36.1) SECONDS Sodium 138 (137-145) mmol/L Potassium 3.7 (3.5-5.1) mmol/L Chloride 101 (98-107) mmol/L Carbon Dioxide 29 (22-30) mmol/L Anion Gap 10.6 (5-15) MEQ/L BUN 18 (9-20) mg/dL Creatinine 1.27 H (0.66-1.25) mg/dL Estimated GFR > 60.0 ML/MIN Glucose 93 (74-106) mg/dL Calcium 9.5 (8.4-10.2) mg/dL Total Bilirubin 0.90 (0.2-1.3) mg/dL AST 44 (17-59) U/L ALT 35 (0-50) U/L Alkaline Phosphatase 83 (38-126) U/L Troponin I 0.018 (0.000-0.034) ng/mL NT-Pro-B Natriuret Pep 216 (0-900) pg/mL Serum Total Protein 7.5 (6.3-8.2) g/dL Albumin 4.0 (3.5-5.0) g/dL 01/05/20 Range/Units 19:19 WBC 8.9 (4.0-10.5) K/mm3 RBC 4.21 (4.1-5.6) M/mm3 Hgb 12.2 L (12.5-18.0) gm/dl Hct 37.7 L (42-50) % MCV 89.5 (78-100) fl MCH 29.0 (26-32) pg MCHC 32.4 (32-36) g/dl RDW 13.2 (11.5-14.0) % Plt Count 479 H (150-450) K/mm3 MPV 9.4 (7.5-11.0) fl Gran % 66.6 H (36.0-66.0) % Eos # (Auto) 0.40 (0-0.5) Absolute Lymphs (auto) 1.76 (1.0-4.6) Absolute Monos (auto) 0.72 (0.0-1.3) Lymphocytes % 19.7 L (24.0-44.0) % Monocytes % 8.1 (0.0-12.0) % Eosinophils % 4.5 (0.00-5.0) % Basophils % 1.1 (0.0-0.4) % Absolute Granulocytes 5.96 (1.4-6.9) Basophils # 0.10 (0-0.4) PT (8.83-12.87) SECONDS INR (0.8-3.0) APTT (24.1-36.1) SECONDS Sodium (137-145) mmol/L Potassium (3.5-5.1) mmol/L Chloride (98-107) mmol/L Carbon Dioxide (22-30) mmol/L Anion Gap (5-15) MEQ/L BUN (9-20) mg/dL Creatinine (0.66-1.25) mg/dL Estimated GFR ML/MIN Glucose (74-106) mg/dL Calcium (8.4-10.2) mg/dL Total Bilirubin (0.2-1.3) mg/dL AST (17-59) U/L ALT (0-50) U/L Alkaline Phosphatase (38-126) U/L Troponin I (0.000-0.034) ng/mL NT-Pro-B Natriuret Pep (0-900) pg/mL Serum Total Protein (6.3-8.2) g/dL Albumin (3.5-5.0) g/dL - Progress Progress: improved Progress Note: 01/05/20 21:11 4mg IV MSO4 w total relief of pain 4mg IV Zofran ASA 324mg po x1 01/06/20 00:[address] Tong at [facility]. Wants to start Heparin. Counseled pt/family regarding: lab results, diagnosis, rad results - Departure Departure Disposition: Transfer Clinical Impression: NSTEMI (non-ST elevated myocardial infarction) Condition: Stable Critical Care Time: Yes Critical Care Time(excluding separately billable procedures): Critical 30-74 mins Referrals: DANNIELLE WAGNER MD [Primary Care Provider] -
[2020-01-05 20:06] LABS: ALKALINE PHOSPHATASE 83 U/L (38-126); ANION GAP 10.6 MEQ/L (5-15); BLOOD UREA NITROGEN 18 mg/dL (9-20); CHLORIDE 101 mmol/L (98-107); Calcium 9.5 mg/dL (8.4-10.2); Carbon Dioxide 29 mmol/L (22-30); Creatinine 1 1.27 mg/dL (0.66-1.25); EST GLOMERULAR FILTRATION RATE > 60.0 ML/MIN; Glucose 93 mg/dL (74-106); NT PRO BNP 216 pg/mL (0-900); Potassium 3.7 mmol/L (3.5-5.1); SGOT/AST 44 U/L (17-59); SGPT/ALT 35 U/L (0-50); SODIUM 138 mmol/L (137-145); Total Protein 7.5 g/dL (6.3-8.2)
[2020-01-05] MEDS ORDERED: Sodium Chloride 0.9% 1000 ML 1,000 ML IV STA (21:55)
[2020-01-05] MEDS ORDERED: Sodium Chloride 0.9% 1000 ML 1,000 ML ONE (21:57)
[2020-01-06] MEDS ORDERED: Heparin 5000 UNITS/0.5 ML (HIGH RISK MED) IV ONE (00:31)
[2020-01-06] MEDS ORDERED: PLAVIX 75 MG Tablet PO ONE (00:37)
[2020-01-06] MEDS ORDERED: Heparin 25,000 units/D5W 250ML PREMIX 25,000 UNITS/250 ML BAG IV ONE (00:38)
[2020-01-06] MEDS ORDERED: Heparin 5000 UNITS/0.5 ML (HIGH RISK MED) ONE (00:38)
[2020-01-06] MEDS ORDERED: Heparin 25,000 units/D5W 250ML PREMIX 25,000 UNITS/250 ML BAG IV SCH (01:00)
[2020-01-06 03:06] VITALS: BP 142/90; PULSE 72
[2020-01-06 04:00] VITALS: O2SAT 100
--- NOTE | 2020-01-06 07:38 | XRAY ---
Indication: Chest and scapular pain. Status post CABG surgery. Conventional CTA chest performed using 100 cc Isovue 370 contrast. Two-dimensional sagittal and coronal reformatted images obtained. Additional 3-dimensional reformatted images obtained using a separate workstation. Comparison: None Heart is not enlarged and demonstrates CABG surgery. Aorta is normal in course and caliber without aneurysm/dissection. No pulmonary embolus. A few small mediastinal lymph nodes. No pathologic distention/hilar lymphadenopathy. Lungs inflated without suspicious pulmonary mass/nodule, infiltrate, or effusion. Bony thorax intact with sternotomy wires. Limited upper abdomen demonstrates fatty liver, a few subcentimeter gallstones, and 4.9 cm right upper renal cyst. Impression: 1. Negative pulmonary embolus or aortic aneurysm/dissection. 2. Status post CABG surgery, gallstones, fatty liver, and right renal cyst. 3. Remaining CTA chest with contrast exam is negative. Comment: Preliminary interpretation was made by [facility]. No critical discrepancy.
--- NOTE | 2020-01-06 07:40 | XRAY ---
Indication: Chest pain. Status post CABG surgery. Comparison: November 01, 2018. Portable chest remains clear again with mild right hemidiaphragm elevation. Heart is not enlarged with interval CABG surgery and stable coronary stent graph. Bony thorax intact. Impression: Nonacute chest with chronic features.
== END 2020-01-06 03:00 ==
LOC: ED 19:14
DX: I21.4 Non-ST elevation (NSTEMI) myocardial infarction (principal); Z95.1 Presence of aortocoronary bypass graft; M54.9 Dorsalgia, unspecified; I10 Essential (primary) hypertension; I25.10 Atherosclerotic heart disease of native coronary artery without angina pectoris; Z79.899 Other long term (current) drug therapy; G47.30 Sleep apnea, unspecified; E78.5 Hyperlipidemia, unspecified
CPT/HCPCS: 36000; 36415; 71045; 71275; 80053; 83880; 84484; 85025; 85610; 85730; 93005; 93041; 96360; 96374; 96375; 99285; 99291; J1644; J2270; J2405; A9270-GY

== ENCOUNTER 2020-09-27 15:02 | Emergency (ER) | payer BC ==
--- NOTE | 2020-09-27 15:07 | ERPHSYRPT ---
- History of Present Illness Time Seen by Provider: 09/27/20 15:07 Source: patient, family Exam Limitations: no limitations Physician History: This is a 59-year-old white male who has a history of hypertension, coronary disease status post CABG and multiple cardiac stents and chronic angina who presents with dizziness that began today while [place] but out in the hot sun. He denies anterior chest pain but does state that he has some scapular pain which improved but is not resolved at the time of this evaluation in the emergency department. He has a history of atypical chest pain with scapular pain as his presenting symptoms. He is on Plavix. 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 Flores at [facility] in [place]. He prefers to go to [place] if cardiology monitoring and evaluation is required. Patient has no shortness of breath. Patient took all of his medications today. Timing/Duration: today Severity: mild (To moderate) Associated Symptoms: headaches, weakness, other (Dizzy), No nausea, No vomiting, No abdominal pain, No shortness of breath, No chest pain, No syncope Allergies/Adverse Reactions: nitroglycerin Adverse Reaction (Verified 09/27/20 15:12) Vomiting Home Medications: Aspirin EC 81 mg [Ecotrin 81 mg] 81 mg PO DAILY 11/04/18 [History] Atorvastatin Calcium [Lipitor] 40 mg PO HS 11/04/18 [History] Metoprolol Tartrate 25 mg [Lopressor 25MG Tab] 25 mg PO BID 11/04/18 [History] Nitroglycerin 0.4 mg Tablet [Nitrostat 0.4 MG Tablet] 0.4 mg SL UD 11/04/18 [History] Acetaminophen 500 mg [Tylenol Extra Strength 500 mg] 500 mg PO Q4-6HPRN PRN 01/05/20 [History] Famotidine [Pepcid AC] 10 mg PO BID 01/05/20 [History] Tramadol HCl 50 mg [Ultram 50 mg] 50 mg PO Q4H PRN PRN 01/05/20 [History] Amlodipine Besylate 5 mg [Norvasc 5 mg] 5 mg PO DAILY 09/27/20 [History] Clopidogrel Bisulfate 75 mg [PLAVIX 75 MG Tablet] 75 mg PO DAILY 09/27/20 [History] Losartan Potassium [Cozaar] 25 mg PO DAILY 09/27/20 [History] Hx Tetanus, Diphtheria Vaccination/Date Given: No Hx Influenza Vaccination/Date Given: Yes Hx Pneumococcal Vaccination/Date Given: No Travel Risk - International Travel Have you traveled outside of the country in past 3 weeks: No - Coronavirus Screening Are you exhibiting any of the following symptoms?: No Close contact with a COVID-19 positive Pt in past 14-21 Days: No - Review of Systems Constitutional: Weakness Eyes: No Symptoms Ears, Nose, & Throat: No Symptoms Respiratory: No Symptoms Cardiac: No Symptoms Abdominal/Gastrointestinal: No Symptoms Genitourinary Symptoms: No Symptoms Musculoskeletal: No Symptoms Neurological: Dizziness Psychological: No Symptoms Endocrine: No Symptoms Hematologic/Lymphatic: No Symptoms Immunological/Allergic: No Symptoms All Other Systems: Reviewed and Negative - Past Medical History Pertinent Past Medical History: Yes Neurological History: No Pertinent History ENT History: No Pertinent History Cardiac History: Angina, Arrhythmia, Coronary Artery Disease, Hypertension, My ocardial Infarction ([place]) Respiratory History: Bronchitis, Sleep Apnea Endocrine Medical History: No Pertinent History Musculoskeletal History: Arthritis, Fractures GI Medical History: Other History: No Pertinent History Psycho-Social History: No Pertinent History Male Reproductive Disorders: No Pertinent History Other Medical History: 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 right hip replacement - Social History Smoking Status: Never smoker Exposure to second hand smoke: No Drug Use: none Patient Lives Alone: Yes Significant Family History: no pertinent family hx - Nursing Vital Signs Nursing Vital Signs: Initial Vital Signs Temperature 95.4 F 09/27/20 15:03 Pulse Rate 77 09/27/20 15:03 Respiratory Rate 20 09/27/20 15:03 Blood Pressure 150/95 09/27/20 15:03 O2 Sat by Pulse Oximetry 98 09/27/20 15:03 Pain Scale Pain Intensity 0 - Physical Exam General Appearance: no apparent distress, alert, anxiety Eye Exam: PERRL/EOMI, eyes nml inspection Ears, Nose, Throat Exam: normal ENT inspection, moist mucous membranes Neck Exam: normal inspection, non-tender, supple, full range of motion Respiratory Exam: normal breath sounds, lungs clear, No chest tenderness, No respiratory distress Cardiovascular Exam: regular rate/rhythm, normal heart sounds, normal peripheral pulses Gastrointestinal/Abdomen Exam: soft, normal bowel sounds, No tenderness Rectal Exam: not done Back Exam: normal inspection, normal range of motion, No CVA tenderness, No vertebral tenderness Extremity Exam: normal inspection, normal range of motion, pelvis stable Neurologic Exam: alert, oriented x 3, cooperative, box machine operator II-XII nml as tested, normal mood/affect, nml cerebellar function, nml station & gait, sensation nml Skin Exam: normal color, warm, dry Lymphatic Exam: No adenopathy SpO2 Interpretation: normal O2 Delivery: Room Air - Course Nursing assessment & vital signs reviewed: Yes EKG Interpreted by Me: RATE (73), Sinus Rhythm, NORMAL AXIS, NORMAL INTERVALS, NORMAL QRS, NORMAL ST-T, Other (No acute ischemic changes. When compared to EKG dated 01/05/2020, there are no changes.) Ordered Tests: Active Orders 24 hr Category Date Time Status EKG-ER Only STAT Care 09/27/20 15:07 Active IV Insertion STAT Care 09/27/20 15:07 Active HEAD WITHOUT CONTRAST [CT] Stat Exams 09/27/20 15:07 Completed CBC W DIFF Stat Lab 09/27/20 15:12 Completed CMP Stat Lab 09/27/20 15:12 Completed MAGNESIUM Stat Lab 09/27/20 15:12 Completed TROPONIN Q3H Lab 09/27/20 15:12 Completed TROPONIN Q3H Lab 09/27/20 18:15 Ordered TROPONIN Q3H Lab 09/27/20 21:15 Ordered TROPONIN Q3H Lab 09/28/20 00:15 Ordered TROPONIN Q3H Lab 09/28/20 03:15 Ordered Medication Summary Generic Name Dose Route Start Last Admin Trade Name Freq PRN Reason Stop Dose Admin Aspirin 243 mg 09/28/20 10:00 09/27/20 15:58 Ecotrin 81 Mg PO 10/28/20 09:59 Not Given DAILY SANTOS Discontinued Medications Generic Name Dose Route Start Last Admin Trade Name Freq PRN Reason Stop Dose Admin Aspirin Confirm 09/27/20 15:53 Baby Aspirin 81 Mg Chew Administered 09/27/20 15:54 Dose 243 mg .ROUTE .STK-MED ONE Aspirin 243 mg 09/27/20 15:58 09/27/20 16:09 Baby Aspirin 81 Mg Chew PO 09/27/20 15:59 243 mg STAT ONE Administration Morphine Sulfate 4 mg 09/27/20 15:40 09/27/20 15:56 Morphine Sulfate 4 Mg Inj IV 09/27/20 15:41 4 mg STAT ONE Administration Morphine Sulfate Confirm 09/27/20 15:54 Morphine Sulfate 4 Mg Inj Administered 09/27/20 15:55 Dose 4 mg .ROUTE .STK-MED ONE Ondansetron HCl 4 mg 09/27/20 15:40 09/27/20 15:56 Zofran 4 Mg/2 Ml Vial IV 09/27/20 15:41 4 mg STAT ONE Administration Ondansetron HCl Confirm 09/27/20 15:53 Zofran 4 Mg/2 Ml Vial Administered 09/27/20 15:54 Dose 4 mg .ROUTE .STK-MED ONE Ondansetron HCl Confirm 09/27/20 16:03 Zofran 4 Mg/2 Ml Vial Administered 09/27/20 16:04 Dose 4 mg .ROUTE .STK-MED ONE Lab/Rad Data: Laboratory Result Diagrams 09/27/20 15:12 09/27/20 15:12 Laboratory Results 09/27/20 09/27/20 09/27/20 Range/Units 15:12 15:12 15:12 WBC 7.1 (4.0-10.5) K/mm3 RBC 5.06 (4.1-5.6) M/mm3 Hgb 12.8 (12.5-18.0) gm/dl Hct 40.9 L (42-50) % MCV 80.8 (78-100) fl MCH 25.3 L (26-32) pg MCHC 31.3 L (32-36) g/dl RDW 14.7 H (11.5-14.0) % Plt Count 271 (150-450) K/mm3 MPV 9.7 (7.5-11.0) fl Gran % 55.6 (36.0-66.0) % Eos # (Auto) 0.78 H (0-0.5) Absolute Lymphs (auto) 1.69 (1.0-4.6) Absolute Monos (auto) 0.63 (0.0-1.3) Lymphocytes % 23.7 L (24.0-44.0) % Monocytes % 8.8 (0.0-12.0) % Eosinophils % 10.9 H (0.00-5.0) % Basophils % 1.0 (0.0-0.4) % Absolute Granulocytes 3.97 (1.4-6.9) Basophils # 0.07 (0-0.4) Sodium 141 (137-145) mmol/L Potassium 3.9 (3.5-5.1) mmol/L Chloride 106 (98-107) mmol/L Carbon Dioxide 25 (22-30) mmol/L Anion Gap 14.8 (5-15) MEQ/L BUN 15 (9-20) mg/dL Creatinine 1.15 (0.66-1.25) mg/dL Estimated GFR > 60.0 ML/MIN Glucose 104 (74-106) mg/dL Calcium 9.3 (8.4-10.2) mg/dL Magnesium 1.8 (1.6-2.3) mg/dL Total Bilirubin 0.40 (0.2-1.3) mg/dL AST 47 (17-59) U/L ALT 34 (0-50) U/L Alkaline Phosphatase 72 (38-126) U/L Troponin I < 0.012 (0.000-0.034) ng/mL Serum Total Protein 7.5 (6.3-8.2) g/dL Albumin 4.3 (3.5-5.0) g/dL - Progress Progress: improved Progress Note: 09/27/20 16:23 CAT scan of the head without contrast shows no acute intracranial abnormality. 09/27/20 17:34 Medical decision making: This patient has a significant cardiac history. He has had multiple cardiac evaluations, interventions including CABG and post CABG stenting. His scapular pain is persistent. I contacted Dr. Flores's office, the patient's parlor maid. He is not available but I did speak with Dr. Hudson who is a parlor maid and Dr. Flores associate. I reviewed the patient's history, physical findings, complaint and results of his laboratory wo rk-up and EKG. Dr. Hudson had the patient's chart in front of him as well. Dr. Hudson also feels the patient might benefit from being further evaluated. We do not have cardiology here at our facility and he accepts the patient in transfer. Counseled pt/family regarding: lab results, diagnosis, need for follow-up, rad results - Departure Departure Disposition: Transfer Clinical Impression: Chest pain, Pain in scapula Condition: Stable Critical Care Time: No Referrals: DANNIELLE WAGNER MD [Primary Care Provider] -
[2020-09-27 15:25] LABS: Absolute Neutrophil Ct (ANC) 3.97 (1.4-6.9); Basophil (Absolute #) 0.07 (0-0.4); Eosinophil % 10.9 % (0.00-5.0); Eosinophil (Absolute #) 0.78 (0-0.5); Hematocrit 40.9 % (42-50); Hemoglobin 12.8 gm/dl (12.5-18.0); Lymphocyte (Absolute #) 1.69 (1.0-4.6); Lymphocytes % 23.7 % (24.0-44.0); Mean Cell Volume 80.8 fl (78-100); Mean Corpuscular Hemoglobin 25.3 pg (26-32); Mean Corpuscular Hgb Concent. 31.3 g/dl (32-36); Mean Platelet Volume 9.7 fl (7.5-11.0); Monocyte (Absolute #) 0.63 (0.0-1.3); Monocytes % 8.8 % (0.0-12.0); Neutrophil % 55.6 % (36.0-66.0); Platelet Count 271 K/mm3 (150-450); Red Blood Count 5.06 M/mm3 (4.1-5.6); Red Cell Distribution Width 14.7 % (11.5-14.0); White Blood Count 7.1 K/mm3 (4.0-10.5)
[2020-09-27 15:38] LABS: ALBUMIN 4.3 g/dL (3.5-5.0); ALKALINE PHOSPHATASE 72 U/L (38-126); ANION GAP 14.8 MEQ/L (5-15); BLOOD UREA NITROGEN 15 mg/dL (9-20); CHLORIDE 106 mmol/L (98-107); Calcium 9.3 mg/dL (8.4-10.2); Carbon Dioxide 25 mmol/L (22-30); Creatinine 1 1.15 mg/dL (0.66-1.25); EST GLOMERULAR FILTRATION RATE > 60.0 ML/MIN; Glucose 104 mg/dL (74-106); MAGNESIUM 1.8 mg/dL (1.6-2.3); Potassium 3.9 mmol/L (3.5-5.1); SGOT/AST 47 U/L (17-59); SGPT/ALT 34 U/L (0-50); SODIUM 141 mmol/L (137-145); Total Protein 7.5 g/dL (6.3-8.2)
[2020-09-27] MEDS ORDERED: MORPHINE SULFATE 4 MG INJ IV ONE (15:40)
[2020-09-27] MEDS ORDERED: Zofran 4 MG/2 ML VIAL IV ONE (15:40)
[2020-09-27] MEDS ORDERED: BABY ASPIRIN 81 MG CHEW ONE (15:53)
[2020-09-27] MEDS ORDERED: Zofran 4 MG/2 ML VIAL ONE ×2 (15:53→16:03)
[2020-09-27] MEDS ORDERED: MORPHINE SULFATE 4 MG INJ ONE (15:54)
[2020-09-27] MEDS ORDERED: BABY ASPIRIN 81 MG CHEW PO ONE (15:58)
--- NOTE | 2020-09-27 16:18 | XRAY ---
Indication: Dizziness, weakness, nausea. Multiple contiguous axial images obtained through the head without contrast. Comparison: November 04, 2018. Normal appearing brain parenchyma, ventricles, and bony calvarium. Visualized paranasal sinuses and mastoid air cells are clear. Impression: Continued normal CT head without contrast exam.
[2020-09-27 20:47] VITALS: BP 126/80; PULSE 70; O2SAT 98
[2020-09-28] MEDS ORDERED: ECOTRIN 81 MG PO SCH (10:00)
== END 2020-09-27 21:40 ==
LOC: ED 15:02
DX: R07.9 Chest pain, unspecified (principal); M25.519 Pain in unspecified shoulder; I10 Essential (primary) hypertension; I25.10 Atherosclerotic heart disease of native coronary artery without angina pectoris; R42 Dizziness and giddiness
CPT/HCPCS: 36000; 36415; 70450; 80053; 83735; 84484; 85025; 93005; 96374; 96375; 99285; J2270; J2405; A9270-GY

== ENCOUNTER 2022-03-17 11:25 | Emergency (ER) | payer MEDICARE ==
--- NOTE | 2022-03-17 11:59 | ERPHSYRPT ---
- History of Present Illness Time Seen by Provider: 03/17/22 11:45 Historian: patient, family Exam Limitations: no limitations Patient Subjective Stated Complaint: Pt reports he had hemorrhoid surgery on 03/06/[address] Welch in [place]. He had a formed bowel movement this morning with bleeding. Triage Nursing Assessment: Pt alert and oriented x3. Ambulated to cot without difficulty. Skin w/p/d. No apparent respiratory distress. Abdomen soft, round, nontender. Bowel sounds active in all four quads. Physician History: This is a 61-year-old white male patient of primary care provider Dr. 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 Welch in [facility]. This patient has significant coronary artery disease and multiple cardiac stents in place and is taking both baby aspirin and Plavix. Patient woke up this morning and had significant rectal bleeding. He denies rectal pain or abdominal pain. On 03/06/2022 patient underwent both a colonoscopy with polypectomy x4 and a hemorrhoidectomy procedure. Patient started back on his Plavix and aspirin the next day following his procedure. Patient denies pain. Patient denies chest pain. Patient denies dizziness or lightheadedness. Additional history was obtained from old records at [facility] as well as review of old labs. Patient's hemoglobin level was 12.3 on 06/04/2021. Patient did take his morning baby aspirin and Plavix medication. Timing/Duration: today Activities at Onset: none Quality: other (No pain) Abdominal Pain Onset Location: other (No abdominal pain. No rectal pain) Pain Radiation: no radiation Severity of Pain-Max: none Severity of Pain-Current: none Modifying Factors: Improves With: defecating Associated Symptoms: denies symptoms Previous symptoms: no prior history, recently seen, recently treated Allergies/Adverse Reactions: nitroglycerin Adverse Reaction (Verified 03/17/22 11:46) Vomiting Home Medications: Aspirin EC 81 mg [Ecotrin 81 mg] 81 mg PO DAILY 11/04/18 [History] Atorvastatin Calcium [Lipitor] 40 mg PO HS 11/04/18 [History] Nitroglycerin 0.4 mg Tablet [Nitrostat 0.4 MG Tablet] 0.4 mg SL UD 11/04/18 [History] Acetaminophen 500 mg [Tylenol Extra Strength 500 mg] 500 mg PO Q4-6HPRN PRN 01/05/20 [History] Tramadol HCl 50 mg [Ultram 50 mg] 50 mg PO Q4H PRN PRN 01/05/20 [History] Clopidogrel Bisulfate [PLAVIX 75 MG Tablet] 75 mg PO DAILY 09/27/20 [History] Ferrous Fumarate [Ferretts] 325 mg PO DAILY 03/17/22 [History] Ranolazine 500 MG [Ranexa 500 MG] 1,000 mg PO DAILY 03/17/22 [History] Sulfamethoxazole/Trimethoprim [Sulfamethoxazole-Tmp Ds Tablet] 2 tab PO DAILY 03/17/22 [History] Valsartan 80 mg PO DAILY 03/17/22 [History] dilTIAZem HCL [Diltiazem ER] 240 mg PO DAILY 03/17/22 [History] Hx Tetanus, Diphtheria Vaccination/Date Given: No Hx Influenza Vaccination/Date Given: No Hx Pneumococcal Vaccination/Date Given: No Travel Risk - International Travel Have you traveled outside of the country in past 3 weeks: No - Coronavirus Screening Are you exhibiting any of the following symptoms?: No Close contact with a COVID-19 positive Pt in past 14-21 Days: No - Vaccine Status Have you recieved a Covid-19 vaccination: Yes [employer] 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 - Vaccination Dates Date of 2cond Vaccination (if applicable): n/a Dates if Unknown: unknown, 2 doses - Review of Systems Constitutional: No Symptoms Eyes: No Symptoms Ears, Nose, & Throat: No Symptoms Respiratory: No Symptoms Cardiac: No Symptoms Abdominal/Gastrointestinal: Other (Rectal bleeding) Genitourinary Symptoms: No Symptoms Musculoskeletal: No Symptoms Skin: No Symptoms Neurological: No Symptoms Psychological: No Symptoms Endocrine: No Symptoms Hematologic/Lymphatic: No Symptoms Immunological/Allergic: No Symptoms All Other Systems: Reviewed and Negative - Past Medical History Pertinent Past Medical History: Yes Neurological History: No Pertinent History ENT History: No Pertinent History Cardiac History: Angina, Coronary Artery Disease, Hypertension, Myocardial Infarction ([place]) Respiratory History: No Pertinent History Endocrine Medical History: No Pertinent History Musculoskeletal History: Arthritis GI Medical History: Other History: No Pertinent History Psycho-Social History: No Pertinent History Male Reproductive Disorders: No Pertinent History Other Medical History: 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 right hip replacement - Social History Smoking Status: Never smoker Exposure to second hand smoke: No Drug Use: none Patient Lives Alone: Yes Significant Family History: no pertinent family hx - Nursing Vital Signs Nursing Vital Signs: Initial Vital Signs Temperature 98 F 03/17/22 11:28 Pulse Rate 101 H 03/17/22 11:28 Respiratory Rate 16 03/17/22 11:28 Blood Pressure 147/94 03/17/22 11:28 O2 Sat by Pulse Oximetry 98 03/17/22 11:28 Pain Scale Pain Intensity 0 - Physical Exam General Appearance: no apparent distress, alert, anxiety Eye Exam: PERRL/EOMI, eyes nml inspection Ears, Nose, Throat Exam: normal ENT inspection, moist mucous membranes Neck Exam: normal inspection, non-tender, supple, full range of motion Respiratory Exam: normal breath sounds, lungs clear, airway intact, No chest tenderness, No respiratory distress Cardiovascular Exam: regular rate/rhythm, normal heart sounds, normal peripheral pulses Gastrointestinal/Abdomen Exam: soft, normal bowel sounds, No tenderness Rectal Exam: not done Extremity Exam: normal inspection, normal range of motion, pelvis stable Neurologic Exam: alert, oriented x 3, cooperative, medical dosimetrist II-XII nml as tested, normal mood/affect, nml cerebellar function, nml station & gait, sensation nml Skin Exam: normal color, warm, dry Lymphatic Exam: No adenopathy SpO2 Interpretation: normal SpO2: 98 O2 Delivery: Room Air - Course Nursing assessment & vital signs reviewed: Yes Ordered Tests: Active Orders 24 hr Category Date Time Status ABDOMEN AND PELVIS W/0 CONTRAS [CT] Stat Exams 03/17/22 11:52 Completed CBC W DIFF Stat Lab 03/17/22 12:24 Completed PROTIME WITH INR Stat Lab 03/17/22 12:24 Completed Lab/Rad Data: Laboratory Result Diagrams 03/17/22 12:24 03/17/22 12:24 Laboratory Results 03/17/22 03/17/22 03/17/22 Range/Units 12:24 12:24 12:24 WBC 7.4 (4.0-10.5) x10^3/uL RBC 5.43 (4.1-5.6) x10^6/uL Hgb 16.4 (12.5-18.0) g/dL Hct 48.9 (42-50) % MCV 90.1 (78-100) fL MCH 30.2 (26-32) pg MCHC 33.5 (32-36) g/dL RDW 12.2 (11.5-14.0) % Plt Count 252 (150-450) x10^3/uL MPV 9.9 (7.5-11.0) fL Gran % 65.3 (36.0-66.0) % Immature Gran % (Auto) 0.3 (0.00-0.4) % Nucleat RBC Rel Count 0.0 (0.00-0.1) % Eos # (Auto) 0.54 H (0-0.5) x10^3/uL Immature Gran # (Auto) 0.02 (0.00-0.03) x10^3u/L Absolute Lymphs (auto) 1.34 (1.0-4.6) x10^3/uL Absolute Monos (auto) 0.58 (0.0-1.3) x10^3/uL Absolute Nucleated RBC 0.00 (0.00-0.01) x10^3u/L Lymphocytes % 18.1 L (24.0-44.0) % Monocytes % 7.8 (0.0-12.0) % Eosinophils % 7.3 H (0.00-5.0) % Basophils % 1.2 (0.0-0.4) % Absolute Granulocytes 4.85 (1.4-6.9) x10^3/uL Basophils # 0.09 (0-0.4) x10^3/uL PT 10.8 (9.4-12.5) SECONDS INR 1.02 (0.8-3.0) Sodium Direct 142 (138-146) mmol/L Potassium 3.9 (3.5-4.9) mmol/L Chloride 107 (98-109) mmol/L Carbon Dioxide 23 L (24-29) mmol/L Venous BUN 16 (8-26) mg/dL Creatinine 1.4 H (0.6-1.3) mg/dL Glucose 104 (70-105) mg/dL Ionized Calcium 1.18 (1.12-1.32) mmol/L - Progress Progress Note: 03/17/22 12:57 CAT scan of the abdomen and pelvis without contrast shows no acute intra- abdominal or intrapelvic process. 03/17/22 13:34 Medical decision making: This patient's visit is of moderate complexity with combination of reviewing old charts, reviewing old labs, ordering labs reviewing the lab results. Ordering CAT scan of the abdomen pelvis and reviewing the radiologist report. In addition we monitored him throughout his stay emergency department. I contacted Dr. Welch who is the surgeon that performed both the colonoscopy with polypectomy and hemorrhoidectomy on this patient on March 06, 2022. I reviewed the entire work-up and results with Dr. Welch. We formulated a plan. This included stopping the Plavix for 5 days. Having the patient contact Dr. Welch's office today to make arranges for follow-up appointment on 03/23/2022. Patient is also to return to the emergency department if bleeding recurs Counseled pt/family regarding: lab results, diagnosis, need for follow-up, rad results - Departure Departure Disposition: Home Clinical Impression: Rectal bleed Condition: Stable Critical Care Time: No Referrals: DANNIELLE WAGNER MD [Primary Care Provider] - Follow up/PCP as directed Additional Instructions: Take daily MiraLAX. Drink plenty of fluids. Stop your Plavix and baby aspirin for [address] Welch office today to make arrangements for a follow-up appointment on 03/23/2022. Return to the emergency department if recurrent substantial rectal bleeding occurs. Expect intermittent mild bloody stools for the next several days.
[2022-03-17 12:25] LABS: Absolute Neutrophil Ct (ANC) 4.85 x10^3/uL (1.4-6.9); Basophil (Absolute #) 0.09 x10^3/uL (0-0.4); Eosinophil % 7.3 % (0.00-5.0); Eosinophil (Absolute #) 0.54 x10^3/uL (0-0.5); Hematocrit 48.9 % (42-50); Hemoglobin 16.4 g/dL (12.5-18.0); Lymphocyte (Absolute #) 1.34 x10^3/uL (1.0-4.6); Lymphocytes % 18.1 % (24.0-44.0); Mean Cell Volume 90.1 fL (78-100); Mean Corpuscular Hemoglobin 30.2 pg (26-32); Mean Corpuscular Hgb Concent. 33.5 g/dL (32-36); Mean Platelet Volume 9.9 fL (7.5-11.0); Monocyte (Absolute #) 0.58 x10^3/uL (0.0-1.3); Monocytes % 7.8 % (0.0-12.0); Neutrophil % 65.3 % (36.0-66.0); Platelet Count 252 x10^3/uL (150-450); Red Blood Count 5.43 x10^6/uL (4.1-5.6); Red Cell Distribution Width 12.2 % (11.5-14.0); White Blood Count 7.4 x10^3/uL (4.0-10.5)
[2022-03-17 12:35] VITALS: BP 130/86
--- NOTE | 2022-03-17 12:42 | XRAY ---
Indication: Rectal bleeding. Status post hemorrhoidectomy March 06, 2022. Multiple contiguous axial images obtained through the abdomen and pelvis without contrast. Comparison: None Lung bases clear. Heart not enlarged with CABG. Right hip arthroplasty produces extreme beam artifact limiting these levels. Noncontrasted stomach and bowel loops appear nonobstructed. Appendectomy reported. No free fluid/air. Multiple subcentimeter gallstones. Right upper kidney demonstrates 5.2 cm cyst. Remaining liver, pancreas, spleen, adrenal glands, kidneys, ureters, bladder, and aorta are unremarkable for noncontrast exam. Osseous structures intact with minimal/mild multilevel thoracolumbar degenerative spondylosis. Bilateral L5 spondylolysis without listhesis. Small fatty left inguinal hernia. Impression: 1. Beam artifact from right total hip arthroplasty. 2. Cholelithiasis better evaluated with sonogram if clinically warranted. 3. Chronic findings including right renal cyst, fatty left inguinal hernia, degenerative spondylosis, and L5 spondylolysis without listhesis.
[2022-03-17 12:43] LABS: ISTAT CREA 1.4 mg/dL (0.6-1.3); ISTAT K 3.9 mmol/L (3.5-4.9)
[2022-03-17 12:45] LABS: INR 1.02 (0.8-3.0); PROTIME 10.8 SECONDS (9.4-12.5)
[2022-03-17 12:58] VITALS: O2SAT 98
[2022-03-17 13:04] VITALS: PULSE 78
== END 2022-03-17 13:48 | disposition home or self-care (01) ==
LOC: ED 11:25
DX: K62.5 Hemorrhage of anus and rectum (principal); I10 Essential (primary) hypertension; Z79.02 Long term (current) use of antithrombotics/antiplatelets; Z79.899 Other long term (current) drug therapy
CPT/HCPCS: 36415; 74176; 80047; 85025; 85610; 99283

== ENCOUNTER 2023-02-03 10:12 | Emergency (ER) | payer MEDICARE ==
[2023-02-03 10:30] VITALS: TEMP 96.9
--- NOTE | 2023-02-03 10:53 | ERPHSYRPT ---
- History of Present Illness Time Seen by Provider: 02/03/23 10:53 Source: patient Exam Limitations: no limitations Patient Subjective Stated Complaint: C/O chest pain following injury. Patient was at the gym and dropped a 165 lbs bar with weights across his chest. Incident happened approx one hour prior to coming into the ER today. Triage Nursing Assessment: Patient ambulated back to ER without difficulties. No SOB noted and patient denies SOB. SKin tone normal. No bruising noted to chest/area of pain. Patient does take plavix and ASA. Scar noted to center of chest from previous surgery; healed from 2019. Center of chest is tender to touch/palpation. Patient is alert and oriented. Physician History: This is a 62-year-old white male patient of Dr. Wagner who has a significant cardiac history including a CABG in 2019 and cardiac stent placed in the past and is on Plavix and aspirin and was working out with weights this morning doing a bench press when his left shoulder "gave out" and the weight fell onto the patient's anterior chest. Patient was concerned because he did have open heart surgery in 2019 and he was having some pain with deep inspiration. Prior to him having this trauma this morning he has had no complaints. Patient has a history of hypertension and hyperlipidemia. Currently, he states he has no significant chest pain unless he takes a deep breath. Timing/Duration: today Severity: mild Modifying Factors: Improves With: other (Deep breath worsens) Associated Symptoms: denies symptoms Allergies/Adverse Reactions: No Known Drug Allergies Allergy (Verified 02/03/23 10:18) Home Medications: Aspirin EC 81 mg [Ecotrin 81 mg] 81 mg PO DAILY 11/04/18 [History] Nitroglycerin 0.4 mg Tablet [Nitrostat 0.4 MG Tablet] 0.4 mg SL UD 11/04/18 [History] Acetaminophen 500 mg [Tylenol Extra Strength 500 mg] 500 mg PO Q4-6HPRN PRN 01/05/20 [History] Clopidogrel Bisulfate [PLAVIX 75 MG Tablet] 75 mg PO DAILY 09/27/20 [History] Ranolazine 500 MG [Ranexa 500 MG] 1 tab PO BID 03/17/22 [History] Valsartan 80 mg PO BID 03/17/22 [History] Atorvastatin Calcium 1 tab PO HS 02/03/23 [History] dilTIAZem HCL [Diltiazem HCl] 1 tab PO BID 02/03/23 [History] Hx Tetanus, Diphtheria Vaccination/Date Given: Yes Hx Influenza Vaccination/Date Given: No Hx Pneumococcal Vaccination/Date Given: No Immunizations Up to Date: Yes Travel Risk - International Travel Have you traveled outside of the country in past 3 weeks: No - Coronavirus Screening Are you exhibiting any of the following symptoms?: No Close contact with a COVID-19 positive Pt in past 14-21 Days: No - Vaccine Status Have you recieved a Covid-19 vaccination: Yes 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 - Vaccination Dates Date of 2cond Vaccination (if applicable): n/a - Review of Systems Constitutional: No Symptoms Eyes: No Symptoms Ears, Nose, & Throat: No Symptoms Respiratory: No Symptoms Cardiac: No Symptoms Abdominal/Gastrointestinal: No Symptoms Genitourinary Symptoms: No Symptoms Musculoskeletal: Other (Blunt trauma to anterior chest wall prior to arrival) Skin: No Symptoms Neurological: No Symptoms Psychological: No Symptoms Endocrine: No Symptoms Hematologic/Lymphatic: No Symptoms Immunological/Allergic: No Symptoms All Other Systems: Reviewed and Negative - Past Medical History Pertinent Past Medical History: Yes Neurological History: No Pertinent History ENT History: No Pertinent History Cardiac History: Angina, Coronary Artery Disease, High Cholesterol, Hypertension, Myocardial Infarction ([place]) Respiratory History: No Pertinent History Endocrine Medical History: No Pertinent History Musculoskeletal History: Arthritis, Fractures GI Medical History: Other History: No Pertinent History Psycho-Social History: No Pertinent History Male Reproductive Disorders: No Pertinent History Other Medical History: 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 [facility] - Past Surgical History Past Surgical History: Yes Neuro Surgical History: No Pertinent History Cardiac: CABG, Cardiac Catheterization, Cardiac Stent Respiratory: No Pertinent History Gastrointestinal: Appendectomy, Hemorrhoidectomy Genitourinary: No Pertinent History Musculoskeletal: Orthopedic Surgery Male Surgical History: No Pertinent History Other Surgical History: left knee arthroscopy and right rotator cuff repair, colonoscopy with bx. right hip replacement - Social History Smoking Status: Never smoker Exposure to second hand smoke: No Drug Use: none Patient Lives Alone: Yes Significant Family History: no pertinent family hx - Nursing Vital Signs Nursing Vital Signs: Initial Vital Signs Temperature 96.9 F 02/03/23 10:13 Pulse Rate 70 02/03/23 10:13 Respiratory Rate 23 02/03/23 10:13 Blood Pressure 144/81 02/03/23 10:13 O2 Sat by Pulse Oximetry 98 02/03/23 10:13 Pain Scale Pain Intensity [Chest] 2 Pain Intensity 2 - Physical Exam General Appearance: no apparent distress, alert Eye Exam: PERRL/EOMI, eyes nml inspection Ears, Nose, Throat Exam: normal ENT inspection, moist mucous membranes Neck Exam: normal inspection, non-tender, supple, full range of motion Respiratory Exam: normal breath sounds, chest tenderness (With deep breath and with palpation onto the chest wall right anterior chest and midsternal), lungs clear, airway intact, No respiratory distress ( region) Cardiovascular Exam: regular rate/rhythm, normal heart sounds, normal peripheral pulses Gastrointestinal/Abdomen Exam: soft, normal bowel sounds, No tenderness Rectal Exam: not done Back Exam: normal inspection, normal range of motion, No CVA tenderness, No vertebral tenderness Extremity Exam: normal inspection, normal range of motion, pelvis stable Neurologic Exam: alert, oriented x 3, cooperative, refinery operator helper cracking unit II-XII nml as tested, normal mood/affect, nml cerebellar function, nml station & gait, sensation nml Skin Exam: normal color, warm, dry Lymphatic Exam: No adenopathy SpO2 Interpretation: normal SpO2: 97 O2 Delivery: Room Air - Course Nursing assessment & vital signs reviewed: Yes Ordered Tests: Active Orders 24 hr Category Date Time Status First Helper STAT Care 02/03/23 11:09 Active EKG-ER Only STAT Care 02/03/23 11:08 Active IV Insertion STAT Care 02/03/23 11:08 Active CHEST 2 VIEWS (PA AND LAT) Stat Exams 02/03/23 11:09 Completed CBC W DIFF Stat Lab 02/03/23 11:08 Completed CMP Stat Lab 02/03/23 11:20 Completed TROPONIN Q4H Lab 02/03/23 11:20 Completed TROPONIN Q4H Lab 02/03/23 15:15 Ordered TROPONIN Q4H Lab 02/03/23 19:15 Ordered Lab/Rad Data: Laboratory Result Diagrams 02/03/23 11:08 02/03/23 11:20 Laboratory Results 02/03/23 02/03/23 02/03/23 Range/Units 11:20 11:20 11:08 WBC 19.3 H (4.0-10.5) x10^3/uL RBC 5.40 (4.1-5.6) x10^6/uL Hgb 16.4 (12.5-18.0) g/dL Hct 49.2 (42-50) % MCV 91.1 (78-100) fL MCH 30.4 (26-32) pg MCHC 33.3 (32-36) g/dL RDW 12.9 (11.5-14.0) % Plt Count 196 (150-450) x10^3/uL MPV 10.4 (7.5-11.0) fL Gran % 86.4 H (36.0-66.0) % Immature Gran % (Auto) 0.7 H (0.00-0.4) % Nucleat RBC Rel Count 0.0 (0.00-0.1) % Eos # (Auto) 0.02 (0-0.5) x10^3/uL Immature Gran # (Auto) 0.13 H (0.00-0.03) x10^3u/L Absolute Lymphs (auto) 1.44 (1.0-4.6) x10^3/uL Absolute Monos (auto) 0.99 (0.0-1.3) x10^3/uL Absolute Nucleated RBC 0.00 (0.00-0.01) x10^3u/L Lymphocytes % 7.5 L (24.0-44.0) % Monocytes % 5.1 (0.0-12.0) % Eosinophils % 0.1 (0.00-5.0) % Basophils % 0.2 (0.0-0.4) % Absolute Granulocytes 16.67 H (1.4-6.9) x10^3/uL Basophils # 0.03 (0-0.4) x10^3/uL Sodium 137 (137-145) mmol/L Potassium 4.1 (3.5-5.1) mmol/L Chloride 107 (98-107) mmol/L Carbon Dioxide 21 L (22-30) mmol/L Anion Gap 13.9 (5-15) MEQ/L BUN 27 H (9-20) mg/dL Creatinine 1.32 H (0.66-1.25) mg/dL Estimated GFR 60.6 ML/MIN Glucose 128 H (74-106) mg/dL Calcium 9.7 (8.4-10.2) mg/dL Total Bilirubin 0.60 (0.2-1.3) mg/dL AST 35 (17-59) U/L ALT 66 H (0-50) U/L Alkaline Phosphatase 109 (38-126) U/L Troponin I < 0.012 (0.000-0.034) ng/mL Serum Total Protein 6.9 (6.3-8.2) g/dL Albumin 4.0 (3.5-5.0) g/dL - Progress Progress: improved, pain not gone completely, re-examined Progress Note: 02/03/23 11:53 This patient medical issues 1 of moderate complexity the level complexity in the workup performed is based on review of the patient's past medical history, review the patient's medication list, review of the patient's drug allergy list, history of present illness and physical findings on examination. Workup in this patient includes placement of intravenous line, CBC, CMP, troponin level, chest x-ray 02/03/23 12:07 Reviewed the patient's laboratory data results. He does have leukocytosis. I believe this is secondary to stress-induced from the trauma. Patient was not f eeling poorly prior to this blunt trauma to the chest wall occurred. I do not feel as though the patient requires intervention for this finding. I do not believe he has an infection. Chest x-ray was interpreted by the radiologist. The impression states unchanged from comparison chest x-ray 06/19/2020. The bony thorax is intact. There is chronic right hemidiaphragm elevation. No new/acute findings. Counseled pt/family regarding: lab results, diagnosis, need for follow-up, rad results Medical Desision Making - Independent Historian Additional History obtained from: Child - Diagnostic Testing Diagnostic test were ordered, analyzed, and reviewed by me: Yes Radiological Interpretation: Reviewed by me, Teleradiologist Report - Risk of complications Minimal Risk: Minimal risk of morbidity - Departure Departure Disposition: Home Clinical Impression: Blunt trauma, Leukocytosis, unspecified Condition: Stable Critical Care Time: No Referrals: DANNIELLE WAGNER MD [Primary Care Provider] - Follow up/PCP as directed Additional Instructions: Ice pack to tender area 3 times a day for the next 48 hours. Take all your medications as prescribed. Follow-up with your primary care provider today by phone to make arranges for follow-up appointment in the next 5 to 7 days.
[2023-02-03 11:14] LABS: Absolute Neutrophil Ct (ANC) 16.67 x10^3/uL (1.4-6.9); BASOPHIL % 0.2 % (0.0-0.4); Basophil (Absolute #) 0.03 x10^3/uL (0-0.4); Eosinophil % 0.1 % (0.00-5.0); Eosinophil (Absolute #) 0.02 x10^3/uL (0-0.5); Hematocrit 49.2 % (42-50); Hemoglobin 16.4 g/dL (12.5-18.0); IMMATURE GRAN # 0.13 x10^3u/L (0.00-0.03); IMMATURE GRAN % 0.7 % (0.00-0.4); Lymphocyte (Absolute #) 1.44 x10^3/uL (1.0-4.6); Lymphocytes % 7.5 % (24.0-44.0); Mean Cell Volume 91.1 fL (78-100); Mean Corpuscular Hemoglobin 30.4 pg (26-32); Mean Corpuscular Hgb Concent. 33.3 g/dL (32-36); Mean Platelet Volume 10.4 fL (7.5-11.0); Monocyte (Absolute #) 0.99 x10^3/uL (0.0-1.3); Monocytes % 5.1 % (0.0-12.0); Neutrophil % 86.4 % (36.0-66.0); Platelet Count 196 x10^3/uL (150-450); Red Cell Distribution Width 12.9 % (11.5-14.0); White Blood Count 19.3 x10^3/uL (4.0-10.5)
[2023-02-03 11:25] LABS: ANION GAP 13.9 MEQ/L (5-15); BILIRUBIN,TOTAL 0.6 mg/dL (0.2-1.3); Calcium 9.7 mg/dL (8.4-10.2); Creatinine 1 1.32 mg/dL (0.66-1.25); EST GLOMERULAR FILTRATION RATE 60.6 ML/MIN; Potassium 4.1 mmol/L (3.5-5.1); Total Protein 6.9 g/dL (6.3-8.2)
[2023-02-03 11:46] VITALS: RESP 15
--- NOTE | 2023-02-03 11:52 | XRAY ---
Indication: Chest wall trauma. Comparison: June 19, 2020 PA/lateral chest unchanged again demonstrating chronic right hemidiaphragm elevation and CABG. Remaining heart and lungs unremarkable. Bony thorax intact. No new/acute findings.
[2023-02-03 11:58] VITALS: O2SAT 97
[2023-02-03 12:14] VITALS: BP 126/94; PULSE 61
== END 2023-02-03 12:18 | disposition home or self-care (01) ==
LOC: ED 10:12
DX: T14.90XA Injury, unspecified, initial encounter (principal); W22.8XXA Striking against or struck by other objects, initial encounter; Y93.B3 Activity, free weights; D72.829 Elevated white blood cell count, unspecified; R07.9 Chest pain, unspecified; E78.5 Hyperlipidemia, unspecified; I10 Essential (primary) hypertension; Z79.02 Long term (current) use of antithrombotics/antiplatelets; Z79.899 Other long term (current) drug therapy
CPT/HCPCS: 36000; 36415; 71046; 80053; 84484; 85025; 93005; 93041; 99284

== ENCOUNTER 2023-10-04 12:36 | Emergency (ER) | payer MEDICARE ==
--- NOTE | 2023-10-04 12:42 | ERPHSYRPT ---
- History of Present Illness Time Seen by Provider: 10/04/23 12:41 Historian: patient, old records Exam Limitations: no limitations Physician History: This is a 62-year-old male patient of Dr. Wagner who presents to the emergency department secondary to an episode of sudden onset sharp chest pain to the left anterior chest without radiation and associated sweating and shortness of breath. Patient states that he has been having similar but less intense episodes over the last several months. The symptoms have completely resolved now here at the emergency department. Patient did see his fruit raiser last week. He has an appointment to see the fruit raiser again on 10/06/2023 to undergo a stress test. Today symptoms lasted approximately 45 minutes. Patient has a history of coronary artery disease (CABG in [address] in place), patient is on Plavix and aspirin, patient has a history of hypertension and hyperlipidemia. Timing/Duration: today Activities at Onset: activity Quality: sharpness Location: other (Anterior chest) Chest Pain Radiation: no radiation Severity of Pain-Max: mild Severity of Pain-Current: none Modifying Factors: Improves With: other (Doing housework/chores) Associated Symptoms: shortness of breath, other (Mild diaphoresis) Prior Chest Pain/Cardiac Workup: cardiac cath, echocardiography, heart attack Nitro Today/Relief: no nitro taken today Aspirin Treatment Today: 81 mg x 1 Allergies/Adverse Reactions: clindamycin Adverse Reaction (Verified 04/30/23 15:33) Nausea and Vomiting hydrocodone Adverse Reaction (Verified 04/30/23 15:33) Nausea and Vomiting Home Medications: Aspirin EC 81 mg [Ecotrin 81 mg] 81 mg PO DAILY 11/04/18 [History] Nitroglycerin 0.4 mg Tablet [Nitrostat 0.4 MG Tablet] 0.4 mg SL UD PRN 11/04/18 [History] Acetaminophen 500 mg [Tylenol Extra Strength 500 mg] 500 mg PO Q4-6HPRN PRN 01/05/20 [History] Clopidogrel Bisulfate [PLAVIX 75 MG Tablet] 75 mg PO DAILY 09/27/20 [History] Ranolazine 500 MG [Ranexa 500 MG] 1 tab PO BID 03/17/22 [History] Valsartan 80 mg PO BID 03/17/22 [History] Atorvastatin Calcium 1 tab PO UD 02/03/23 [History] dilTIAZem HCL [Diltiazem HCl] 1 tab PO BID 02/03/23 [History] Hx Tetanus, Diphtheria Vaccination/Date Given: Yes Hx Influenza Vaccination/Date Given: No Hx Pneumococcal Vaccination/Date Given: No Travel Risk - International Travel Have you traveled outside of the country in past 3 weeks: No - Emerging Infectious Disease Are you exhibiting symptoms associated with any current EIDs: No - Review of Systems Constitutional: No Symptoms Eyes: No Symptoms Ears, Nose, & Throat: No Symptoms Respiratory: No Symptoms Cardiac: Chest Pain (Now resolved) Abdominal/Gastrointestinal: No Symptoms Genitourinary Symptoms: No Symptoms Musculoskeletal: No Symptoms Skin: No Symptoms Neurological: No Symptoms Psychological: No Symptoms Endocrine: No Symptoms Hematologic/Lymphatic: No Symptoms Immunological/Allergic: No Symptoms - Past Medical History Pertinent Past Medical History: Yes Neurological History: No Pertinent History ENT History: No Pertinent History Cardiac History: Angina, Coronary Artery Disease, High Cholesterol, Hypertension, Myocardial Infarction (OR) Respiratory History: No Pertinent History Endocrine Medical History: No Pertinent History Musculoskeletal History: Arthritis, Fractures GI Medical History: Other History: No Pertinent History Psycho-Social History: No Pertinent History Male Reproductive Disorders: No Pertinent History Other Medical History: 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 - Past Surgical History Past Surgical History: Yes Neuro Surgical History: No Pertinent History Cardiac: CABG, Cardiac Catheterization, Cardiac Stent Respiratory: No Pertinent History Gastrointestinal: Appendectomy, Hemorrhoidectomy Genitourinary: No Pertinent History Musculoskeletal: Orthopedic Surgery Male Surgical History: No Pertinent History Other Surgical History: left knee arthroscopy and right rotator cuff repair, colonoscopy with bx. right hip replacement Significant Family History: no pertinent family hx - Social History Smoking Status: Never smoker Exposure to second hand smoke: No Drug Use: none Patient Lives Alone: Yes - Nursing Vital Signs Nursing Vital Signs: Initial Vital Signs Temperature 97.1 F 10/04/23 12:37 Pulse Rate 58 L 10/04/23 12:37 Respiratory Rate 18 10/04/23 12:37 Blood Pressure 164/81 10/04/23 12:37 O2 Sat by Pulse Oximetry 97 10/04/23 12:37 Pain Scale Pain Intensity 0 - Physical Exam General Appearance: no apparent distress, alert, anxiety Eye Exam: PERRL/EOMI, eyes nml inspection Ears, Nose, Throat Exam: normal ENT inspection, moist mucous membranes Neck Exam: normal inspection, non-tender, supple, full range of motion Respiratory Exam: normal breath sounds, lungs clear, airway intact, No chest tenderness, No respiratory distress Cardiovascular Exam: regular rate/rhythm, normal heart sounds, normal peripheral pulses Gastrointestinal/Abdomen Exam: soft, normal bowel sounds, No tenderness Rectal Exam: not done Back Exam: normal inspection, normal range of motion, No CVA tenderness, No vertebral tenderness Extremity Exam: normal inspection, normal range of motion, pelvis stable Neurologic Exam: alert, oriented x 3, cooperative, groundskeeper porter II-XII nml as tested, nml cerebellar function, nml station & gait, sensation nml Skin Exam: normal color, warm, dry Lymphatic Exam: No adenopathy SpO2 Interpretation: normal O2 Delivery: Room Air - Course Nursing assessment & vital signs reviewed: Yes EKG Interpreted by Me: RATE (59), Sinus Rhythm, Right [place] Deviation, NORMAL INTERVALS, NORMAL QRS, Other (No acute ischemia on today's twelve-lead EKG. When compared to the twelve-lead EKG dated 04/30 2023, the only changes a lower heart rate. Patient has noticed that his heart rate, recently, it has been lower than usual.) Ordered Tests: Active Orders 24 hr Category Date Time Status Splitter Head STAT Care 10/04/23 12:44 Active EKG-ER Only STAT Care 10/04/23 12:44 Active IV Insertion STAT Care 10/04/23 12:44 Active Pulse Oximetry (ED) STAT Care 10/04/23 12:44 Active CHEST 1 VIEW (PORTABLE) Stat Exams 10/04/23 14:20 Completed CBC W DIFF Stat Lab 10/04/23 12:50 Completed CMP Stat Lab 10/04/23 12:50 Completed D-DIMER QUANTITATIVE Stat Lab 10/04/23 12:50 Completed MAGNESIUM Stat Lab 10/04/23 12:50 Completed NT PRO BNPII Stat Lab 10/04/23 12:50 Completed PROTIME WITH INR Stat Lab 10/04/23 12:50 Completed TROPONIN Q4H Lab 10/04/23 12:50 Completed TROPONIN Q4H Lab 10/04/23 15:07 Completed TROPONIN Q4H Lab 10/04/23 20:45 Ordered Medication Summary Discontinued Medications Generic Name Dose Route Start Last Admin Trade Name Pari PRN Reason Stop Dose Admin Aspirin 324 mg 10/04/23 12:44 10/04/23 12:52 Aspirin 81 Mg Tab.Chew PO 10/04/23 12:45 324 mg STAT ONE Administration Aspirin Confirm 10/04/23 12:51 Aspirin 81 Mg Tab.Chew Administered 10/04/23 12:52 Dose 324 mg .ROUTE .STK-MED ONE Lab/Rad Data: Laboratory Result Diagrams 10/04/23 12:50 10/04/23 12:50 Laboratory Results 10/04/23 10/04/23 10/04/23 Range/Units 15:07 12:50 12:50 WBC (4.23-9.07) x10^3/uL RBC (4.63-6.08) x10^6/uL Hgb (13.7-17.5) g/dL Hct (40.1-51.0) % MCV (79.0-92.2) fL MCH (25.7-32.2) pg MCHC (32.3-36.5) g/dL RDW (11.6-14.4) % Plt Count (163-337) x10^3/uL MPV (9.4-12.4) fL Gran % (34.0-67.9) % Immature Gran % (Auto) (0.001-0.429) % Nucleat RBC Rel Count (0.00-0.2) % Eos # (Auto) (0.04-0.54) x10^3/uL Immature Gran # (Auto) (0.001-0.031) x10^3u/L Absolute Lymphs (auto) (1.32-3.57) x10^3/uL Absolute Monos (auto) (0.30-0.82) x10^3/uL Absolute Nucleated RBC (0.00-0.012) x10^3u/L Lymphocytes % (21.8-53.1) % Monocytes % (5.3-12.2) % Eosinophils % (0.8-7.0) % Basophils % (0.2-1.2) % Absolute Granulocytes (1.78-5.38) x10^3/uL Basophils # (0.01-0.08) x10^3/uL PT 10.7 (9.4-12.5) SECONDS INR 0.98 (0.8-3.0) D-Dimer 0.22 (0.0-0.50) mg/L Sodium (135-145) mmol/L Potassium (3.5-5.1) mmol/L Chloride (98-107) mmol/L Carbon Dioxide (22-30) mmol/L Anion Gap (5-15) MEQ/L BUN (9-20) mg/dL Creatinine (0.66-1.25) mg/dL Estimated GFR ML/MIN Glucose (74-106) mg/dL Calcium (8.4-10.2) mg/dL Magnesium (1.6-2.3) mg/dL Total Bilirubin (0.2-1.3) mg/dL AST (17-59) U/L ALT (0-50) U/L Alkaline Phosphatase (38-126) U/L Troponin I < 0.012 < 0.012 (0.000-0.033) ng/mL NT-Pro-B Natriuret Pep < 20.0 (<300) pg/mL Serum Total Protein (6.3-8.2) g/dL Albumin (3.5-5.0) g/dL 10/04/23 10/04/23 Range/Units 12:50 12:50 WBC 6.4 (4.23-9.07) x10^3/uL RBC 5.29 (4.63-6.08) x10^6/uL Hgb 15.9 (13.7-17.5) g/dL Hct 47.9 (40.1-51.0) % MCV 90.5 (79.0-92.2) fL MCH 30.1 (25.7-32.2) pg MCHC 33.2 (32.3-36.5) g/dL RDW 12.8 (11.6-14.4) % Plt Count 198 (163-337) x10^3/uL MPV 9.1 L (9.4-12.4) fL Gran % 65.3 (34.0-67.9) % Immature Gran % (Auto) 0.5 H (0.001-0.429) % Nucleat RBC Rel Count 0.0 (0.00-0.2) % Eos # (Auto) 0.15 (0.04-0.54) x10^3/uL Immature Gran # (Auto) 0.03 (0.001-0.031) x10^3u/L Absolute Lymphs (auto) 1.43 (1.32-3.57) x10^3/uL Absolute Monos (auto) 0.55 (0.30-0.82) x10^3/uL Absolute Nucleated RBC 0.00 (0.00-0.012) x10^3u/L Lymphocytes % 22.4 (21.8-53.1) % Monocytes % 8.6 (5.3-12.2) % Eosinophils % 2.3 (0.8-7.0) % Basophils % 0.9 (0.2-1.2) % Absolute Granulocytes 4.17 (1.78-5.38) x10^3/uL Basophils # 0.06 (0.01-0.08) x10^3/uL PT (9.4-12.5) SECONDS INR (0.8-3.0) D-Dimer (0.0-0.50) mg/L Sodium 139 (135-145) mmol/L Potassium 4.2 (3.5-5.1) mmol/L Chloride 105 (98-107) mmol/L Carbon Dioxide 24 (22-30) mmol/L Anion Gap 13.1 (5-15) MEQ/L BUN 21 H (9-20) mg/dL Creatinine 1.21 (0.66-1.25) mg/dL Estimated GFR 67.3 ML/MIN Glucose 88 (74-106) mg/dL Calcium 9.5 (8.4-10.2) mg/dL Magnesium 1.8 (1.6-2.3) mg/dL Total Bilirubin 0.60 (0.2-1.3) mg/dL AST 46 (17-59) U/L ALT 64 H (0-50) U/L Alkaline Phosphatase 86 (38-126) U/L Troponin I (0.000-0.033) ng/mL NT-Pro-B Natriuret Pep (<300) pg/mL Serum Total Protein 6.3 (6.3-8.2) g/dL Albumin 3.8 (3.5-5.0) g/dL - Progress Progress: improved, re-examined Air Movement: good Progress Note: 10/04/23 13:10 My medical decision making in the assignment of moderate complexity to this patient's medical issue today is based on review of the patient's past medical history, review of patient's medication list, review patient drug allergy list, history present of some physical findings on examination. The workup in this patient includes placement of intravenous line, provision of 324 mg of baby aspirin, CBC, CMP, PT/INR, BNP, troponin level, D-dimer level, twelve-lead EKG, magnesium level. Differential diagnosis includes but is not limited to myocardial infarction, CHF exacerbation, pulmonary embolus, arrhythmia, anemia 10/04/23 14:21 Patient continues to not have any chest pain. I interpreted the patient initial laboratory data results. There is no evidence of any acute or emergent findings. We will repeat the twelve-lead EKG and the troponin level at approximately 3 PM. 10/04/23 15:44 The second troponin I interpreted. It is a normal level as well. The repeat twelve-lead EKG was performed at 1432 which shows a sinus rhythm with heart rate of 58 bp QTc is 392. Normal axis normal deviation and normal QRS without acute ischemia. 10/04/23 16:37 I interpreted the preliminary report of the patient's chest x-ray. There is no acute cardiopulmonary process. The patient has no chest pain or shortness of breath. His initial troponin and EKG are within normal limits without evidence of acute ischemia. His repeat troponin and repeat twelve-lead EKG also showed no acute ischemia. The family (patient and daughter) were initially concerned about the lower than usual heart rate. The rhythm strip did show the patient dropped his heart rate to 51 but immediately it increased back to 58-61 range without a change in his blood pressure. Patient was not symptomatic. I did call the patient's fruit raiser, Dr. Fly Flores office. He is not in the office today. We waited to speak with Dr. Davis. He is in clinic. The patient and family do not want to wait any longer. Patient will be discharged to home. He is stable to be discharged to home. Blood Culture(s) Obtained: No Antibiotics given: No Counseled pt/family regarding: lab results, diagnosis, need for follow-up, rad results Medical Desision Making - Independent Historian Additional History obtained from: Family - Diagnostic Testing Diagnostic test were ordered, analyzed, and reviewed by me: Yes Radiological Interpretation: Interpreted by me - Risk of complications Low Risk: Low risk of morbidity from additional dx testing or treatment - Departure Departure Disposition: Home Clinical Impression: Nonspecific chest pain Condition: Stable Critical Care Time: No Referrals: DANNIELLE WAGNER MD [Primary Care Provider] - Follow up/PCP as directed Additional Instructions: Continue your medications as prescribed. Keep your appointment with your car diologist dated 10/06/2023. Return to emergency department if you have any question concerns or your symptoms recur.
[2023-10-04] MEDS ORDERED: BABY ASPIRIN 81 MG CHEW ONE (12:51)
[2023-10-04] MEDS: BABY ASPIRIN 81 MG CHEW PO ONE (12:52)
[2023-10-04 12:57] LABS: Absolute Neutrophil Ct (ANC) 4.17 x10^3/uL (1.78-5.38); BASOPHIL % 0.9 % (0.2-1.2); Basophil (Absolute #) 0.06 x10^3/uL (0.01-0.08); Eosinophil % 2.3 % (0.8-7.0); Eosinophil (Absolute #) 0.15 x10^3/uL (0.04-0.54); Hematocrit 47.9 % (40.1-51.0); Hemoglobin 15.9 g/dL (13.7-17.5); IMMATURE GRAN # 0.03 x10^3u/L (0.001-0.031); IMMATURE GRAN % 0.5 % (0.001-0.429); Lymphocyte (Absolute #) 1.43 x10^3/uL (1.32-3.57); Lymphocytes % 22.4 % (21.8-53.1); Mean Cell Volume 90.5 fL (79.0-92.2); Mean Corpuscular Hemoglobin 30.1 pg (25.7-32.2); Mean Corpuscular Hgb Concent. 33.2 g/dL (32.3-36.5); Mean Platelet Volume 9.1 fL (9.4-12.4); Monocyte (Absolute #) 0.55 x10^3/uL (0.30-0.82); Monocytes % 8.6 % (5.3-12.2); Neutrophil % 65.3 % (34.0-67.9); Platelet Count 198 x10^3/uL (163-337); Red Blood Count 5.29 x10^6/uL (4.63-6.08); Red Cell Distribution Width 12.8 % (11.6-14.4); White Blood Count 6.4 x10^3/uL (4.23-9.07)
[2023-10-04 13:19] LABS: ALBUMIN 3.8 g/dL (3.5-5.0); ANION GAP 13.1 MEQ/L (5-15); BILIRUBIN,TOTAL 0.6 mg/dL (0.2-1.3); Calcium 9.5 mg/dL (8.4-10.2); Creatinine 1 1.21 mg/dL (0.66-1.25); D-DIMER QUANTITATIVE 0.22 mg/L (0.0-0.50); EST GLOMERULAR FILTRATION RATE 67.3 ML/MIN; INR 0.98 (0.8-3.0); MAGNESIUM 1.8 mg/dL (1.6-2.3); PROTIME 10.7 SECONDS (9.4-12.5); Potassium 4.2 mmol/L (3.5-5.1); Total Protein 6.3 g/dL (6.3-8.2)
[2023-10-04 13:24] LABS: NT PRO BNPII < 20.0 pg/mL (<300); TROPONIN < 0.012 ng/mL (0.000-0.033)
--- NOTE | 2023-10-04 14:43 | XRAY ---
Indication: Chest pain. Short of breath. Comparison: February 03, 2023 Portable chest unchanged again demonstrating chronic right hemidiaphragm elevation and CABG. Remaining heart and lungs unremarkable. Bony thorax intact. No new/acute findings.
[2023-10-04 16:39] VITALS: BP 132/40; PULSE 58; RESP 18; TEMP 97.5; O2SAT 98
== END 2023-10-04 16:43 | disposition home or self-care (01) ==
LOC: ED 12:36
DX: R07.9 Chest pain, unspecified (principal); R06.02 Shortness of breath; I10 Essential (primary) hypertension; E78.5 Hyperlipidemia, unspecified; Z79.02 Long term (current) use of antithrombotics/antiplatelets; Z79.899 Other long term (current) drug therapy
CPT/HCPCS: 36415; 71045; 80053; 83735; 83880; 84484; 85025; 85379; 85610; 93005; 93041; 94760; 99284; A9270-GY

== ENCOUNTER 2024-10-31 17:05 | Observation (INO) | payer MEDICARE ==
[2024-10-31 17:41] LABS: Hematocrit 51.0 % (40.1-51.0); Hemoglobin 16.7 g/dL (13.7-17.5); Mean Corpuscular Hemoglobin 29.2 pg (25.7-32.2); Mean Corpuscular Hgb Concent. 32.7 g/dL (32.3-36.5); Platelet Count 141 x10^3/uL (163-337); Red Blood Count 5.71 x10^6/uL (4.63-6.08); White Blood Count 13.8 x10^3/uL (4.23-9.07)
[2024-10-31 17:45] LABS: Calcium 8.8 mg/dL (8.4-10.2); Carbon Dioxide 21.0 mmol/L (22-30); Creatinine 1 2.36 mg/dL (0.66-1.25); EST GLOMERULAR FILTRATION RATE 29.8 ML/MIN; Glucose 111.0 mg/dL (74-106); Potassium 4.1 mmol/L (3.5-5.1); SGOT/AST 64.0 U/L (17-59); SGPT/ALT 78.0 U/L (0-50); Total Protein 6.5 g/dL (6.3-8.2)
[2024-10-31 18:33] LABS: Group A Strep NOT DETECTED (NEGATIVE)
[2024-10-31 18:45] LABS: INFLUENZA A NEGATIVE (NEGATIVE); INFLUENZA B NEGATIVE (NEGATIVE); RESPIRATORY SYNCTIAL VIRUS NEGATIVE (NEGATIVE); SARS-CoV-2 Xpert Express NEGATIVE (NEGATIVE)
[2024-10-31 18:47] LABS: Total Cells Counted 100
[2024-10-31] MEDS ORDERED: Lactated Ringers 1,000 ML IV ONE (19:31)
[2024-10-31] MEDS: Lactated Ringers 1,000 ML IV ONE (19:33)
[2024-10-31 21:19] LABS: Glucose, Urine Negative (Negative); Protein,Urine Dip 30 (Negative); RBC 0-2 /HPF (0-5); WBC 0-2 /HPF (0-5)
--- NOTE | 2024-10-31 22:00 | ERPHSYRPT ---
- History of Present Illness Time Seen by Provider: 10/31/24 17:40 Source: patient Exam Limitations: no limitations Patient Subjective Stated Complaint: PT states "I have not been feeling well and I have had lower blood pressure than normal so they sent me over here." Triage Nursing Assessment: Pt presented alert and oriented X 3, skin pwd. Pt ambualtes with an upright steady gait, able to speak in clear full setences. Pt resting comfortably on the bed. Physician History: 64-year-old male history of angina hyperlipidemia CO hypertension CABG cardiac stent presents to our ED for evaluation of feeling unwell for the past 3 to 5 days. Patient states his symptoms are progressively worsening. Patient checked his blood pressure and observed to be more than normal. Patient became concerned and came to our ED for an evaluation. Patient denies pain. No trauma no fever. No cough. Patient reports subjective fever at home. Patient currently afebrile. No chest pain or shortness of breath. No nausea vomiting or diaphoresis. No diarrhea no rash. Patient voices no other complaints or concerns at this time. Portions of this note were created with voice recognition technology. There may be grammatical, spelling, punctuation or sound alike errors Timing/Duration: today Severity: moderate Associated Symptoms: denies symptoms Allergies/Adverse Reactions: clindamycin Adverse Reaction (Verified 08/10/24 11:44) Nausea and Vomiting hydrocodone Adverse Reaction (Verified 08/10/24 11:44) Nausea and Vomiting Home Medications: Aspirin EC 81 mg [Ecotrin 81 mg] 81 mg PO DAILY 11/04/18 [History] Nitroglycerin 0.4 mg Tablet [Nitrostat 0.4 MG Tablet] 0.4 mg SL UD PRN 11/04/18 [History] Clopidogrel Bisulfate [PLAVIX Tablet] 75 mg PO DAILY 09/27/20 [History] Atorvastatin Calcium 40 tab PO UD 02/03/23 [History] dilTIAZem HCL [Diltiazem HCl] 1 tab PO BID 02/03/23 [History] Benzonatate 100 mg PO TID 10/31/24 [History] Cefdinir 300 mg [Omnicef 300 mg] 300 mg PO BID 10/31/24 [History] Ranolazine 500 MG [Ranexa 500 MG] 500 mg PO BID 10/31/24 [History] Sulfamethoxazole/Trimethoprim [Sulfamethoxazole-Tmp Ss Tablet] 1 each PO BID 10/31/24 [History] Valsartan 160 mg PO DAILY 10/31/24 [History] Hx Tetanus, Diphtheria Vaccination/Date Given: No Hx Influenza Vaccination/Date Given: No Hx Pneumococcal Vaccination/Date Given: No Travel Risk - International Travel Have you traveled outside of the country in past 3 weeks: No - Emerging Infectious Disease Are you exhibiting symptoms associated with any current EIDs: No - Review of Systems All Other Systems: Reviewed and Negative - Past Medical History Pertinent Past Medical History: Yes Neurological History: No Pertinent History ENT History: No Pertinent History Cardiac History: Angina, Coronary Artery Disease, High Cholesterol, Hypertension, Myocardial Infarction ([place]) Respiratory History: Sleep Apnea Endocrine Medical History: No Pertinent History Musculoskeletal History: Arthritis, Fractures GI Medical History: Other History: No Pertinent History Psycho-Social History: No Pertinent History Male Reproductive Disorders: No Pertinent History Other Medical History: 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 - Past Surgical History Past Surgical History: Yes Neuro Surgical History: No Pertinent History Cardiac: CABG, Cardiac Catheterization, Cardiac Stent Respiratory: No Pertinent History Gastrointestinal: Appendectomy, Cholecystectomy, Hemorrhoidectomy Genitourinary: No Pertinent History Musculoskeletal: Orthopedic Surgery Male Surgical History: No Pertinent History Other Surgical History: left knee arthroscopy and right rotator cuff repair, colonoscopy with bx. right hip replacement Significant Family History: no pertinent family hx - Social History Smoking Status: Never smoker Exposure to second hand smoke: No Drug Use: none - Social Determinants of Health Will the patient participate in the screening: Yes Do you worry about a steady place to live?: No Do you have any problems with any of the following?: No known problems In the past 12 months,have you had to go without utilities?: No Transportation Issues: No Has anyone in your support network made you feel unsafe?: No Have you or anyone in your house had to go w/o enough food: No - Nursing Vital Signs Nursing Vital Signs: Initial Vital Signs Temperature 97.1 F 10/31/24 17:15 Pulse Rate 92 H 10/31/24 17:15 Respiratory Rate 18 10/31/24 17:15 Blood Pressure 97/61 10/31/24 17:15 O2 Sat by Pulse Oximetry 96 10/31/24 17:15 Pain Scale Pain Intensity 0 - Physical Exam General Appearance: no apparent distress, alert Eye Exam: PERRL/EOMI, eyes nml inspection Ears, Nose, Throat Exam: normal ENT inspection, TMs normal, pharynx normal, moist mucous membranes Neck Exam: normal inspection, non-tender, supple, full range of motion Respiratory Exam: normal breath sounds, lungs clear, airway intact, No respiratory distress Cardiovascular Exam: regular rate/rhythm, normal heart sounds, normal peripheral pulses Gastrointestinal/Abdomen Exam: soft, normal bowel sounds, No tenderness, No mass Back Exam: normal inspection, normal range of motion, No CVA tenderness, No vertebral tenderness Extremity Exam: normal inspection, normal range of motion, pelvis stable Neurologic Exam: alert, oriented x 3, cooperative, normal mood/affect, sensation nml, No motor deficits Skin Exam: normal color, warm, dry, No rash Lymphatic Exam: No adenopathy SpO2 Interpretation: normal SpO2: 97 O2 Delivery: Room Air - Course Nursing assessment & vital signs reviewed: Yes EKG Interpreted by Me: RATE (94), Sinus Rhythm, NORMAL AXIS, NORMAL INTERVALS, NORMAL QRS (EKG similar to previous) - Radiology Exams Chest X-ray Interpretation: Teleradiologist Report (No acute findings) Ordered Tests: Active Orders 24 hr Category Date Time Status Election Clerk STAT Care 10/31/24 17:32 Active EKG-ER Only STAT Care 10/31/24 17:31 Active IV Insertion STAT Care 10/31/24 17:31 Active CHEST 1 VIEW (PORTABLE) Stat Exams 10/31/24 17:31 Taken BLOOD CULTURE Stat Lab 10/31/24 18:25 Received CBC W DIFF Stat Lab 10/31/24 17:25 Results CMP Stat Lab 10/31/24 17:25 Completed Lactic Acid Stat Lab 10/31/24 17:40 Completed Manual Differential NC Stat Lab 10/31/24 17:25 Results Pathologist Review Stat Lab 10/31/24 17:25 Results TROPONIN Q4H Lab 10/31/24 17:25 Received TROPONIN Q4H Lab 11/01/24 02:15 Ordered TROPONIN Q4H Lab 11/01/24 06:15 Ordered TROPONIN Stat Lab 10/31/24 22:15 Completed UA W/RFX UR CULTURE Stat Lab 10/31/24 20:54 Completed Transfer Order Routine Transfer 10/31/24 Ordered Medication Summary Generic Name Dose Route Start Last Admin Trade Name Pari PRN Reason Stop Dose Admin Lactated Ringer's 1,000 mls @ 250 mls/hr 10/31/24 19:32 10/31/24 19:33 Lactated Ringers IV 10/31/24 23:31 250 mls/hr .Q4H ONE Administration Discontinued Medications Generic Name Dose Route Start Last Admin Trade Name Pari PRN Reason Stop Dose Admin Sodium Chloride 1,000 mls @ 125 mls/hr 10/31/24 17:45 Sodium Chloride 0.9% 1000 Ml IV 11/30/24 17:44 .Q8H SANTOS Sodium Chloride 1,000 mls @ 999 mls/hr 10/31/24 17:43 10/31/24 18:53 Sodium Chloride 0.9% 1000 Ml IV 10/31/24 18:43 Infused .Q1H1M STA Infusion Lactated Ringer's Confirm 10/31/24 19:31 Lactated Ringers Administered 10/31/24 19:32 Dose 1,000 mls @ ud IV .STK-MED ONE Lab/Rad Data: Laboratory Result Diagrams 10/31/24 17:25 10/31/24 17:25 Laboratory Results 10/31/24 10/31/24 10/31/24 Range/Units 22:15 20:54 18:05 WBC (4.23-9.07) x10^3/uL RBC (4.63-6.08) x10^6/uL Hgb (13.7-17.5) g/dL Hct (40.1-51.0) % MCV (79.0-92.2) fL MCH (25.7-32.2) pg MCHC (32.3-36.5) g/dL RDW (11.6-14.4) % Plt Count (163-337) x10^3/uL MPV (9.4-12.4) fL Segmented Neutrophils (34.0-67.9) % Lymphocytes (Manual) (21.8-53.1) % Monocytes (Manual) (5.3-12.2) % Atypical Lymphocytes % Platelet Estimate (NORMAL) RBC Morphology Smear Path Review Sodium (135-145) mmol/L Potassium (3.5-5.1) mmol/L Chloride (98-107) mmol/L Carbon Dioxide (22-30) mmol/L Anion Gap (5-15) MEQ/L BUN (9-20) mg/dL Creatinine (0.66-1.25) mg/dL Estimated GFR ML/MIN Glucose (74-106) mg/dL Lactic Acid (0.4-2.0) Calcium (8.4-10.2) mg/dL Total Bilirubin (0.2-1.3) mg/dL AST (17-59) U/L ALT (0-50) U/L Alkaline Phosphatase (38-126) U/L Troponin I < 0.012 (0.000-0.033) ng/mL Serum Total Protein (6.3-8.2) g/dL Albumin (3.5-5.0) g/dL Urine Color Dark Yellow (Yellow) Urine Appearance Clear (Clear) Urine pH 5.0 (4.6-8.0) Ur Specific [place] 1.025 (1.005-1.030) Urine Protein 30 (Negative) Urine Glucose (UA) Negative (Negative) mg/dL Urine Ketones Trace A (Negative) Urine Blood Negative (Negative) Urine Nitrite Negative (Negative) Urine Bilirubin Small A (Negative) Urine Urobilinogen 1.0 A (0.2) mg/dL Ur Leukocyte Esterase Negative (Negative) U Hyaline Cast (Auto) 11-20 (0-2) /LPF Urine Microscopic RBC 0-2 (0-5) /HPF Urine Microscopic WBC 0-2 (0-5) /HPF Ur Epithelial Cells None Seen (None Seen) /HPF Urine Bacteria None Seen (None Seen) /HPF Urine Culture Reflexed NO (NO) Influenza Type A Ag NEGATIVE (NEGATIVE) Influenza Type B Ag NEGATIVE (NEGATIVE) RSV (PCR) NEGATIVE (NEGATIVE) SARS-CoV-2 (PCR) NEGATIVE (NEGATIVE) Group A Strep Antibody NOT DETECTED (NEGATIVE) 10/31/24 10/31/24 10/31/24 Range/Units 17:40 17:25 17:25 WBC 13.8 H (4.23-9.07) x10^3/uL RBC 5.71 (4.63-6.08) x10^6/uL Hgb 16.7 (13.7-17.5) g/dL Hct 51.0 (40.1-51.0) % MCV 89.3 (79.0-92.2) fL MCH 29.2 (25.7-32.2) pg MCHC 32.7 (32.3-36.5) g/dL RDW 12.7 (11.6-14.4) % Plt Count 141 L (163-337) x10^3/uL MPV 10.2 (9.4-12.4) fL Segmented Neutrophils 29 L (34.0-67.9) % Lymphocytes (Manual) 42 (21.8-53.1) % Monocytes (Manual) 4 L (5.3-12.2) % Atypical Lymphocytes 25 % Platelet Estimate NORMAL (NORMAL) RBC Morphology NORMAL Smear Path Review Pending Sodium 136 (135-145) mmol/L Potassium 4.1 (3.5-5.1) mmol/L Chloride 104 (98-107) mmol/L Carbon Dioxide 21 L (22-30) mmol/L Anion Gap 14.2 (5-15) MEQ/L BUN 33 H (9-20) mg/dL Creatinine 2.36 H (0.66-1.25) mg/dL Estimated GFR 29.8 ML/MIN Glucose 111 H (74-106) mg/dL Lactic Acid 1.5 (0.4-2.0) Calcium 8.8 (8.4-10.2) mg/dL Total Bilirubin 0.90 (0.2-1.3) mg/dL AST 64 H (17-59) U/L ALT 78 H (0-50) U/L Alkaline Phosphatase 98 (38-126) U/L Troponin I (0.000-0.033) ng/mL Serum Total Protein 6.5 (6.3-8.2) g/dL Albumin 3.5 (3.5-5.0) g/dL Urine Color (Yellow) Urine Appearance (Clear) Urine pH (4.6-8.0) Ur Specific [place] (1.005-1.030) Urine Protein (Negative) Urine Glucose (UA) (Negative) mg/dL Urine Ketones (Negative) Urine Blood (Negative) Urine Nitrite (Negative) Urine Bilirubin (Negative) Urine Urobilinogen (0.2) mg/dL Ur Leukocyte Esterase (Negative) U Hyaline Cast (Auto) (0-2) /LPF Urine Microscopic RBC (0-5) /HPF Urine Microscopic WBC (0-5) /HPF Ur Epithelial Cells (None Seen) /HPF Urine Bacteria (None Seen) /HPF Urine Culture Reflexed (NO) Influenza Type A Ag (NEGATIVE) Influenza Type B Ag (NEGATIVE) RSV (PCR) (NEGATIVE) SARS-CoV-2 (PCR) (NEGATIVE) Group A Strep Antibody (NEGATIVE) - Progress Progress: improved Progress Note: Patient accepted by hospitalist Dr. Galaviz at 10 PM 10/31/24 22:18 64-year-old male presents to our ED as a referral from his primary care doctor for low blood pressure. Physical exam essentially nonremarkable. Patient afebrile upon arrival. Laboratory workup reveals acute renal injury. Troponin negative. Patient states he has not been eating or drinking very much. Patient has been feeling unwell and sleeping and resting most of the time. Patient likely experiencing acute renal injury from dehydration. IV fluids administered. Patient will require hospitalization for further evaluation and treatment. Viral panel negative. Plan of care discussed with patient. He agrees to admission to [facility] for further evaluation and treatment. Differential diagnosis is a viral syndrome, dehydration, renal injury, bacterial infection History obtained from patient and his primary care doctor whom I spoke to prior to his arrival to our ED. Portions of this note were created with voice recognition technology. There may be grammatical, spelling, punctuation or sound alike errors Complexity of problem addressed is moderate acute complicated. No critical care time. Complexity of data reviewed and analyzed as extensive. Test ordered test reviewed results analyzed and correlated clinically with history and physical exam. Management discussed with hospitalist who accepts admission to observation. Risk of complication and or risk of morbidity/mortality of patient management is high. Vital stable. Time spent in patient is approximately 15 minutes. Plan of care established for shared decision making. No social determinants of health present to impede follow-up. Portions of this note were created with voice recognition technology. There may be grammatical, spelling, punctuation or sound alike errors 10/31/24 23:05 10/31/24 23:08 Counseled pt/family regarding: lab results, diagnosis, rad results - Departure Departure Disposition: Home Clinical Impression: Acute renal injury, Hypotension, Dehydration, Leukocytosis Condition: Stable Critical Care Time: No Referrals: DANNIELLE WAGNER MD [Primary Care Provider, [facility]] - Follow up/PCP as directed
--- NOTE | 2024-11-01 01:20 | PCM.HP ---
History of Present Illness - Chief Complaint Chief Complaint: hypotension / STACIE Date: 11/01/24 History of Present Illness: is a 64 year old male with a PMH of HTN, HLD, and CABG who presents to the ED for complaints of feeling unwell. Patient notes that his symptoms started 1 week ago with generalized fatigue and myalgias. He subsequently developed fever and a cough productive of clear phlegm and was seen at his PCPs office on Friday 10/27 where he was diagnosed with sinusitis and started on an oral course of Cefdinir. The patient reports that he continued to have persistent fever and decided to come to the ER. Reports mild neck pain and frontal headaches. Denied chest pain, SOB, abdominal pain, sore throat, nausea, vomiting. Reports that during this time he had not been eating or drinking as usual. - Review of Systems Constitutional: Fever, Chills, Fatigue, Lethargy, Malaise, No Weakness Eyes: No Symptoms, No Vision Changes, No Double Vision Ears, Nose, & Throat: No Symptoms, No Nose Discharge, No Sinus Drainage, No Mouth Pain, No Throat Pain, No Throat Swelling Respiratory: Cough, No Orthopnea Cardiac: No Symptoms, No Chest Pain Abdominal/Gastrointestinal: No Symptoms, No Abdominal Pain, No Nausea, No Vomiting Genitourinary Symptoms: No Symptoms, No Dysuria Musculoskeletal: Arthralgias, Back Pain, Neck Pain, No Joint Redness, No Joint Swelling Skin: No Symptoms Neurological: Headache, No Dizziness, No Focal Weakness, No Gait Changes, No Speech Changes Endocrine: No Symptoms Hematologic/Lymphatic: No Symptoms Immunological/Allergic: No Symptoms Medications & Allergies Home Medications: Home Medication List Aspirin EC 81 mg [Ecotrin 81 mg] 81 mg PO DAILY 11/04/18 [History Confirmed 10/31/24] Nitroglycerin 0.4 mg Tablet [Nitrostat 0.4 MG Tablet] 0.4 mg SL UD PRN 11/04/18 [History Confirmed 10/31/24] Clopidogrel Bisulfate [PLAVIX Tablet] 75 mg PO DAILY 09/27/20 [History Confirmed 10/31/24] Atorvastatin Calcium 40 tab PO UD 02/03/23 [History Confirmed 10/31/24] dilTIAZem HCL [Diltiazem HCl] 1 tab PO BID 02/03/23 [History Confirmed 10/31/24] Benzonatate 100 mg PO TID 10/31/24 [History Confirmed 10/31/24] Cefdinir 300 mg [Omnicef 300 mg] 300 mg PO BID 10/31/24 [History Confirmed 10/31/24] Ranolazine 500 MG [Ranexa 500 MG] 500 mg PO BID 10/31/24 [History Confirmed 10/31/24] Sulfamethoxazole/Trimethoprim [Sulfamethoxazole-Tmp Ss Tablet] 1 each PO BID 10/31/24 [History Confirmed 10/31/24] Valsartan 160 mg PO DAILY 10/31/24 [History Confirmed 10/31/24] Allergies/Adverse Reactions: Allergies Allergy/AdvReac Type Severity Reaction Status Date / Time clindamycin AdvReac Nausea and Verified 08/10/24 11:44 Vomiting hydrocodone AdvReac Nausea and Verified 08/10/24 11:44 Vomiting - Past Medical History Past Medical History: Yes Neurological History: No Pertinent History ENT History: No Pertinent History Cardiac History: Angina, Coronary Artery Disease, High Cholesterol, Hypertension, Myocardial Infarction ([place]) Respiratory History: Sleep Apnea Endocrine Medical History: No Pertinent History Musculoskelatal History: Arthritis, Fractures GI Medical History: No Pertinent History, Other History: No Pertinent History Pyscho-Social History: No Pertinent History Male Reproductive Disorders: No Pertinent History Comment: 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 [employer] Worker: [employer] - Past Surgical History Past Surgical History: Yes Neuro Surgical History: No Pertinent History Cardiac History: CABG, Cardiac Catheterization, Cardiac Stent Respiratory Surgery: No Pertinent History GI Surgical History: Appendectomy, Cholecystectomy, Hemorrhoidectomy Genitourinary Surgical Hx: No Pertinent History Musculskeletal Surgical Hx: Orthopedic Surgery Male Surgical History: No Pertinent History Other Surgical History: left knee arthroscopy and right rotator cuff repair, colonoscopy with bx. right hip replacement Significant Family History: no pertinent family hx - Social History Smoking Status: Never smoker Exposure to second hand smoke: No Alcohol: None Drug Use: none - Social Determinants of Health Will the patient participate in the screening: Declined to provide Do you worry about a steady place to live?: No Do you have any problems with any of the following?: No known problems In the past 12 months,have you had to go without utilities?: No Have you or anyone in your house had to go without enough: No Transportation Issues: No Has anyone in your support network made you feel unsafe?: No - Physical Exam Vital Signs: Vital Signs - 24 hr Temp Pulse Resp BP BP Pulse Ox 11/01/24 00:00 97.1 F 93 H 18 128/65 98 10/31/24 23:48 93 H 21 128/65 98 10/31/24 23:09 97 10/31/24 22:45 90 26 H 110/62 95 10/31/24 22:30 90 22 114/65 96 10/31/24 22:16 89 24 119/66 93 L 10/31/24 22:03 110/60 10/31/24 22:00 89 20 106/63 94 L 10/31/24 21:45 88 14 97/63 95 10/31/24 21:30 89 24 104/64 95 10/31/24 21:15 85 24 114/68 95 10/31/24 21:00 91 H 22 106/63 97 10/31/24 20:45 85 26 H 112/72 95 10/31/24 20:38 87 25 H 118/70 95 10/31/24 20:15 88 20 118/74 95 10/31/24 20:02 85 29 H 111/69 97 10/31/24 19:45 87 28 H 111/68 97 10/31/24 19:30 89 22 97/74 96 10/31/24 19:15 87 20 105/59 97 10/31/24 19:00 79 14 104/62 97 10/31/24 18:45 82 18 98/56 97 10/31/24 18:41 82 16 95/61 95 10/31/24 18:30 84 22 86/58 96 10/31/24 18:15 83 22 90/61 96 10/31/24 18:03 87 15 89/61 94 L 10/31/24 18:02 89 14 95 10/31/24 18:00 87 16 96 10/31/24 17:50 84 21 94 L 10/31/24 17:47 92 H 18 94 L 10/31/24 17:30 88 24 78/59 94 L 10/31/24 17:15 97.1 F 92 H 18 97/61 96 General Appearance: no apparent distress, alert Neurologic Exam: alert, oriented x 3 Eye Exam: PERRL/EOMI Ears, Nose, Throat Exam: normal ENT inspection Neck Exam: normal inspection Respiratory Exam: normal breath sounds Cardiovascular Exam: regular rate/rhythm, normal heart sounds, normal peripheral pulses Gastrointestinal/Abdomen Exam: soft, normal bowel sounds, No tenderness, No distention Extremity Exam: normal inspection, normal range of motion Skin Exam: normal color, warm Results - Labs Lab/Micro Results: Lab Results-Last 24 Hours 10/31/24 10/31/24 10/31/24 Range/Units 17:25 17:25 17:25 WBC 13.8 H (4.23-9.07) x10^3/uL RBC 5.71 (4.63-6.08) x10^6/uL Hgb 16.7 (13.7-17.5) g/dL Hct 51.0 (40.1-51.0) % MCV 89.3 (79.0-92.2) fL MCH 29.2 (25.7-32.2) pg MCHC 32.7 (32.3-36.5) g/dL RDW 12.7 (11.6-14.4) % Plt Count 141 L (163-337) x10^3/uL MPV 10.2 (9.4-12.4) fL Segmented Neutrophils 29 L (34.0-67.9) % Lymphocytes (Manual) 42 (21.8-53.1) % Monocytes (Manual) 4 L (5.3-12.2) % Atypical Lymphocytes 25 % Platelet Estimate NORMAL (NORMAL) RBC Morphology NORMAL Smear Path Review Pending Sodium 136 (135-145) mmol/L Potassium 4.1 (3.5-5.1) mmol/L Chloride 104 (98-107) mmol/L Carbon Dioxide 21 L (22-30) mmol/L Anion Gap 14.2 (5-15) MEQ/L BUN 33 H (9-20) mg/dL Creatinine 2.36 H (0.66-1.25) mg/dL Estimated GFR 29.8 ML/MIN Glucose 111 H (74-106) mg/dL Lactic Acid (0.4-2.0) Calcium 8.8 (8.4-10.2) mg/dL Total Bilirubin 0.90 (0.2-1.3) mg/dL AST 64 H (17-59) U/L ALT 78 H (0-50) U/L Alkaline Phosphatase 98 (38-126) U/L Troponin I < 0.012 (0.000-0.033) ng/mL Serum Total Protein 6.5 (6.3-8.2) g/dL Albumin 3.5 (3.5-5.0) g/dL Urine Color (Yellow) Urine Appearance (Clear) Urine pH (4.6-8.0) Ur Specific Williams (1.005-1.030) Urine Protein (Negative) Urine Glucose (UA) (Negative) mg/dL Urine Ketones (Negative) Urine Blood (Negative) Urine Nitrite (Negative) Urine Bilirubin (Negative) Urine Urobilinogen (0.2) mg/dL Ur Leukocyte Esterase (Negative) U Hyaline Cast (Auto) (0-2) /LPF Urine Microscopic RBC (0-5) /HPF Urine Microscopic WBC (0-5) /HPF Ur Epithelial Cells (None Seen) /HPF Urine Bacteria (None Seen) /HPF Urine Culture Reflexed (NO) Influenza Type A Ag (NEGATIVE) Influenza Type B Ag (NEGATIVE) RSV (PCR) (NEGATIVE) SARS-CoV-2 (PCR) (NEGATIVE) Group A Strep Antibody (NEGATIVE) 10/31/24 10/31/24 10/31/24 Range/Units 17:40 18:05 20:54 WBC (4.23-9.07) x10^3/uL RBC (4.63-6.08) x10^6/uL Hgb (13.7-17.5) g/dL Hct (40.1-51.0) % MCV (79.0-92.2) fL MCH (25.7-32.2) pg MCHC (32.3-36.5) g/dL RDW (11.6-14.4) % Plt Count (163-337) x10^3/uL MPV (9.4-12.4) fL Segmented Neutrophils (34.0-67.9) % Lymphocytes (Manual) (21.8-53.1) % Monocytes (Manual) (5.3-12.2) % Atypical Lymphocytes % Platelet Estimate (NORMAL) RBC Morphology Smear Path Review Sodium (135-145) mmol/L Potassium (3.5-5.1) mmol/L Chloride (98-107) mmol/L Carbon Dioxide (22-30) mmol/L Anion Gap (5-15) MEQ/L BUN (9-20) mg/dL Creatinine (0.66-1.25) mg/dL Estimated GFR ML/MIN Glucose (74-106) mg/dL Lactic Acid 1.5 (0.4-2.0) Calcium (8.4-10.2) mg/dL Total Bilirubin (0.2-1.3) mg/dL AST (17-59) U/L ALT (0-50) U/L Alkaline Phosphatase (38-126) U/L Troponin I (0.000-0.033) ng/mL Serum Total Protein (6.3-8.2) g/dL Albumin (3.5-5.0) g/dL Urine Color Dark Yellow (Yellow) Urine Appearance Clear (Clear) Urine pH 5.0 (4.6-8.0) Ur Specific Williams 1.025 (1.005-1.030) Urine Protein 30 (Negative) Urine Glucose (UA) Negative (Negative) mg/dL Urine Ketones Trace A (Negative) Urine Blood Negative (Negative) Urine Nitrite Negative (Negative) Urine Bilirubin Small A (Negative) Urine Urobilinogen 1.0 A (0.2) mg/dL Ur Leukocyte Esterase Negative (Negative) U Hyaline Cast (Auto) 11-20 (0-2) /LPF Urine Microscopic RBC 0-2 (0-5) /HPF Urine Microscopic WBC 0-2 (0-5) /HPF Ur Epithelial Cells None Seen (None Seen) /HPF Urine Bacteria None Seen (None Seen) /HPF Urine Culture Reflexed NO (NO) Influenza Type A Ag NEGATIVE (NEGATIVE) Influenza Type B Ag NEGATIVE (NEGATIVE) RSV (PCR) NEGATIVE (NEGATIVE) SARS-CoV-2 (PCR) NEGATIVE (NEGATIVE) Group A Strep Antibody NOT DETECTED (NEGATIVE) 10/31/24 Range/Units 22:15 WBC (4.23-9.07) x10^3/uL RBC (4.63-6.08) x10^6/uL Hgb (13.7-17.5) g/dL Hct (40.1-51.0) % MCV (79.0-92.2) fL MCH (25.7-32.2) pg MCHC (32.3-36.5) g/dL RDW (11.6-14.4) % Plt Count (163-337) x10^3/uL MPV (9.4-12.4) fL Segmented Neutrophils (34.0-67.9) % Lymphocytes (Manual) (21.8-53.1) % Monocytes (Manual) (5.3-12.2) % Atypical Lymphocytes % Platelet Estimate (NORMAL) RBC Morphology Smear Path Review Sodium (135-145) mmol/L Potassium (3.5-5.1) mmol/L Chloride (98-107) mmol/L Carbon Dioxide (22-30) mmol/L Anion Gap (5-15) MEQ/L BUN (9-20) mg/dL Creatinine (0.66-1.25) mg/dL Estimated GFR ML/MIN Glucose (74-106) mg/dL Lactic Acid (0.4-2.0) Calcium (8.4-10.2) mg/dL Total Bilirubin (0.2-1.3) mg/dL AST (17-59) U/L ALT (0-50) U/L Alkaline Phosphatase (38-126) U/L Troponin I < 0.012 (0.000-0.033) ng/mL Serum Total Protein (6.3-8.2) g/dL Albumin (3.5-5.0) g/dL Urine Color (Yellow) Urine Appearance (Clear) Urine pH (4.6-8.0) Ur Specific Williams (1.005-1.030) Urine Protein (Negative) Urine Glucose (UA) (Negative) mg/dL Urine Ketones (Negative) Urine Blood (Negative) Urine Nitrite (Negative) Urine Bilirubin (Negative) Urine Urobilinogen (0.2) mg/dL Ur Leukocyte Esterase (Negative) U Hyaline Cast (Auto) (0-2) /LPF Urine Microscopic RBC (0-5) /HPF Urine Microscopic WBC (0-5) /HPF Ur Epithelial Cells (None Seen) /HPF Urine Bacteria (None Seen) /HPF Urine Culture Reflexed (NO) Influenza Type A Ag (NEGATIVE) Influenza Type B Ag (NEGATIVE) RSV (PCR) (NEGATIVE) SARS-CoV-2 (PCR) (NEGATIVE) Group A Strep Antibody (NEGATIVE) - Radiology Impressions Radiology Exams & Impressions: Radiology Procedures Category Date Time Status CHEST 1 VIEW (PORTABLE) Stat Exams 10/31/24 17:31 Taken Assessment/Plan (1) Acute renal injury Current Visit: Yes Status: Acute Assessment & Plan: Suspect due to poor oral intake in setting of suspected viral illness Monitor BMP C/w IVFs NS 125 ml/hr Code(s): N17.9 - ACUTE KIDNEY FAILURE, UNSPECIFIED (2) Dehydration Current Visit: Yes Status: Acute Code(s): E86.0 - DEHYDRATION (3) Hypotension Current Visit: Yes Status: Acute Assessment & Plan: Likely due to poor oral intake Suspect underlying viral infection Respiratory viral panel negative in the ER F/u blood cultures Code(s): I95.9 - HYPOTENSION, UNSPECIFIED (4) Leukocytosis, unspecified Current Visit: Yes Status: Acute Code(s): D72.829 - ELEVATED WHITE BLOOD CELL COUNT, UNSPECIFIED (5) HTN (hypertension) Current Visit: Yes Status: Acute Assessment & Plan: Hold off on home antihypertensives for now and resume as warranted Code(s): I10 - ESSENTIAL (PRIMARY) HYPERTENSION (6) HLD (hyperlipidemia) Current Visit: Yes Status: Acute Assessment & Plan: Resume home statin Lipitor 40 mg po qd Code(s): E78.5 - HYPERLIPIDEMIA, UNSPECIFIED (7) Coronary artery disease Current Visit: Yes Status: Acute Assessment & Plan: C/w home ASA and Plavix doses Code(s): I25.10 - ATHSCL HEART DISEASE OF [place] CORONARY ARTERY W/O ANG PCTRS (8) Thrombocytopenia Current Visit: Yes Status: Acute Assessment & Plan: Suspect due to ongoing infection. Mild. Continue to monitor CBC (9) Transaminitis Current Visit: Yes Status: Acute Assessment & Plan: Likely also due to ongoing viral infection. Too low for a hepatitis etiology. Continue to trend for now. Code(s): R74.01 - ELEVATION OF LEVELS OF LIVER TRANSAMINASE LEVELS Telemedicine Encounter - Telemedicine Encounter Telemedicine Encounter: "The entirety of this encounter was performed via Telemedicine" This visit was performed using real-time audio and video connection between my location and thepatients locationwith the assistance of a surrogateat the patients location. Written or verbal consent was obtained from the patient/guardian to perform this [facility]. Any patient questions regarding the telemedicine interaction were answered.
[2024-11-01] MEDS ORDERED: LIPITOR 40MG PO SCH (01:45)
[2024-11-01 05:31] LABS: Hematocrit 43.2 % (40.1-51.0); Hemoglobin 14.6 g/dL (13.7-17.5); Mean Corpuscular Hemoglobin 30.2 pg (25.7-32.2); Mean Corpuscular Hgb Concent. 33.8 g/dL (32.3-36.5); Platelet Count 130 x10^3/uL (163-337); Red Blood Count 4.84 x10^6/uL (4.63-6.08); White Blood Count 11.6 x10^3/uL (4.23-9.07)
[2024-11-01 05:47] LABS: Calcium 8.1 mg/dL (8.4-10.2); Carbon Dioxide 23.0 mmol/L (22-30); Creatinine 1 1.51 mg/dL (0.66-1.25); EST GLOMERULAR FILTRATION RATE 50.9 ML/MIN; Glucose 120.0 mg/dL (74-106); Potassium 4.2 mmol/L (3.5-5.1); SGOT/AST 51.0 U/L (17-59); SGPT/ALT 60.0 U/L (0-50); Total Protein 5.3 g/dL (6.3-8.2)
--- NOTE | 2024-11-01 08:42 | XRAY ---
Indication: Cough. Comparison: October 04, 2023 Portable chest remains inflated and clear again with incidental chronic right hemidiaphragm elevation. Heart not enlarged again with CABG. Bony thorax intact. No new/acute findings.
[2024-11-01 08:46] LABS: Total Cells Counted 100
[2024-11-01] MEDS: ECOTRIN 81 MG PO SCH (08:52)
[2024-11-01] MEDS: PLAVIX Tablet PO SCH (08:52)
[2024-11-01] MEDS: LIPITOR 40MG PO SCH (17:17)
[2024-11-01] MEDS: Ranexa 500 MG PO SCH (21:38)
[2024-11-01] MEDS: Cardizem CD PO SCH (21:39)
[2024-11-01] MEDS ORDERED: DILTIAZEM HCL 120 MG PO SCH (22:00)
[2024-11-01] MEDS ORDERED: ZOCOR 20MG PO SCH (22:00)
[2024-11-02 05:30] LABS: Hematocrit 44.6 % (40.1-51.0); Hemoglobin 14.6 g/dL (13.7-17.5); Mean Corpuscular Hemoglobin 29.7 pg (25.7-32.2); Mean Corpuscular Hgb Concent. 32.7 g/dL (32.3-36.5); Platelet Count 120 x10^3/uL (163-337); Red Blood Count 4.91 x10^6/uL (4.63-6.08); White Blood Count 12.4 x10^3/uL (4.23-9.07)
--- NOTE | 2024-11-02 05:55 | PCM.NOTE ---
Date and Time: 11/02/24 0550 Subjective Assessment: Mr. Brooks is a 64 year old male with a pmhx of hypertension, hyperlipidemia, and prior coronary artery bypass grafting (CABG), who presented to the emergency department with ongoing systemic symptoms. He initially reported one week of generalized fatigue, myalgias, persistent fever, and cough with clear sputum. He had been evaluated in his primary care office on 10/27 and was diagnosed with sinusitis, started on oral Cefdinir, but continued to experience fever and malaise. On arrival, he denied chest pain, shortness of breath, abdominal pain, nausea, vomiting, or sore throat, though he endorsed mild frontal headaches and neck discomfort. His oral intake had been poor, contributing to dehydration and subsequent acute kidney injury. Initial labs revealed creatinine of 2.36, which improved to 1.51 with intravenous fluid resuscitation, leukocytosis at 13.8 downtrending to 11.6, and mild hyponatremia with sodium at 133. Liver enzymes were elevated (AST 64, ALT 78) but have since improved to 51 and 60, respectively. He has remained intermittently febrile (Tmax 100.2F) with mild tachycardia. Imaging studies included a chest X-ray that showed no acute cardiopulmonary findings and an abdominal ultrasound performed to evaluate transaminitis. Urinalysis was negative. Respiratory viral panel in the ED was negative; blood cultures are pending with TD. The overall presentation is most consistent with a suspected viral illness causing systemic inflammatory response, complicated by dehydration, acute kidney injury, leukocytosis, and mild transaminitis. Objective Data Vital Signs: Vital Signs - 24 hr Temp Pulse Resp BP Pulse Ox 11/02/24 04:00 97.9 F 93 H 18 124/75 96 11/02/24 00:00 98.9 F 102 H 18 112/78 98 11/01/24 20:00 100.2 F 114 H 27 H 124/79 96 11/01/24 16:00 98.2 F 101 H 18 119/74 97 11/01/24 11:58 97.7 F 90 16 121/72 96 11/01/24 08:00 101 H 102/68 11/01/24 07:38 97.2 F 11/01/24 07:27 24 Pain Assessment - Last Documented Pain Intensity 0 Intake and Output: Intake & Output 10/30/24 10/31/24 11/01/2404/25 11:59 11:59 11:59 11:59 Intake Total 300 2833 Output Total 450 Balance 300 2383 Weight 75.8 kg Lab Results: Lab Results-Last 24 Hours 11/01/24 11/02/24 Range/Units 05:25 04:14 WBC 12.4 H (4.23-9.07) x10^3/uL RBC 4.91 (4.63-6.08) x10^6/uL Hgb 14.6 (13.7-17.5) g/dL Hct 44.6 (40.1-51.0) % MCV 90.8 (79.0-92.2) fL MCH 29.7 (25.7-32.2) pg MCHC 32.7 (32.3-36.5) g/dL RDW 12.9 (11.6-14.4) % Plt Count 120 L (163-337) x10^3/uL MPV 9.8 (9.4-12.4) fL Segmented Neutrophils 48 (34.0-67.9) % Lymphocytes (Manual) 46 (21.8-53.1) % Monocytes (Manual) 2 L (5.3-12.2) % Eosinophils (Manual) 1 (0.8-7.0) % Basophils (Manual) 1 (0.2-1.2) % Atypical Lymphocytes 2 % Platelet Estimate NORMAL (NORMAL) RBC Morphology NORMAL Radiology Exams: Radiology Procedures Category Date Time Status ABDOMINAL-LIMITED [US] Urgent Exams 11/02/24 07:00 Ordered CHEST 1 VIEW (PORTABLE) Stat Exams 10/31/24 17:31 Completed Medications: Medications Generic Name Dose Route Start Last Admin Trade Name Pari PRN Reason Stop Dose Admin Aspirin 81 mg 11/01/24 10:00 11/01/24 08:52 Aspirin 81 Mg Tablet.Ec PO 12/01/24 09:59 81 mg DAILY SANTOS Administration Atorvastatin Calcium 40 mg 11/01/24 16:45 11/01/24 17:17 Atorvastatin Calcium 40 Mg Tablet PO 12/01/24 16:44 40 mg Q48H SANTOS Administration Clopidogrel Bisulfate 75 mg 11/01/24 10:00 11/01/24 08:52 Clopidogrel Bisulfate 75 Mg Tablet PO 12/01/24 09:59 75 mg DAILY SANTOS Administration Diltiazem HCl 120 mg 11/01/24 22:00 11/01/24 21:39 Diltiazem Hcl Cd 120 Mg Cap.Sr.24h PO 12/01/24 21:59 120 mg BID SANTOS Administration Sodium Chloride 1,000 mls @ 100 mls/hr 11/01/24 08:45 11/01/24 08:52 Sodium Chloride 0.9% 1000 Ml IV 12/01/24 08:44 125 mls/hr .Q10H SANTSO Administration Ranolazine 500 mg 11/01/24 22:00 11/01/24 21:38 Ranolazine 500 Mg Tab.Sr.12h PO 12/01/24 21:59 500 mg BID SANTOS Administration Discontinued Medications Generic Name Dose Route Start Last Admin Trade Name Freq PRN Reason Stop Dose Admin Sodium Chloride 1,000 mls @ 125 mls/hr 10/31/24 17:45 Sodium Chloride 0.9% 1000 Ml IV 11/30/24 17:44 .Q8H SANTOS Sodium Chloride 1,000 mls @ 999 mls/hr 10/31/24 17:43 10/31/24 18:53 Sodium Chloride 0.9% 1000 Ml IV 10/31/24 18:43 Infused .Q1H1M STA Infusion Lactated Ringer's 1,000 mls @ 250 mls/hr 10/31/24 19:32 10/31/24 23:14 Lactated Ringers IV 10/31/24 23:31 Infused .Q4H ONE Infusion Lactated Ringer's Confirm 10/31/24 19:31 Lactated Ringers Administered 10/31/24 19:32 Dose 1,000 mls @ ud IV .STK-MED ONE Simvastatin 40 mg 11/01/24 22:00 Simvastatin 20 Mg Tablet PO 12/01/24 21:59 Q48H SANTOS Assessment/Plan (1) Acute renal injury Current Visit: Yes Status: Acute Assessment & Plan: -Likely prerenal from volume depletion. Improving with IV fluids 2.36-1.51 - -Continue IV normal saline -Monitor CMP daily. -Avoid nephrotoxic agents Code(s): N17.9 - ACUTE KIDNEY FAILURE, UNSPECIFIED (2) Suspected viral infection Current Visit: Yes Status: Acute Assessment & Plan: -Negative respiratory viral panel, but presentation fits viral process -Supportive management: hydration, fever control. -Continue to monitor for secondary bacterial superinfection Code(s): R68.89 - OTHER GENERAL SYMPTOMS AND SIGNS (3) Sinusitis Current Visit: Yes Status: Acute Assessment & Plan: -Diagnosed by PCP; on oral cefdinir -No clear evidence of bacterial sinusitis; antibiotics discontinued if cultures remain negative. -Supportive care with hydration, antipyretics. Code(s): J32.9 - CHRONIC SINUSITIS, UNSPECIFIED (4) Coronary artery disease Current Visit: Yes Status: Acute Assessment & Plan: -Stable; no ACS symptoms -continue home meds Code(s): I25.10 - ATHSCL HEART DISEASE OF [place] CORONARY ARTERY W/O ANG PCTRS (5) Dehydration Current Visit: Yes Status: Acute Assessment & Plan: -from poor oral intake in the setting of systemic illness -Continue IV fluid resuscitation. -Encourage oral hydration. Code(s): E86.0 - DEHYDRATION (6) HLD (hyperlipidemia) Current Visit: Yes Status: Acute Assessment & Plan: -continue statin Code(s): E78.5 - HYPERLIPIDEMIA, UNSPECIFIED (7) HTN (hypertension) Current Visit: Yes Status: Acute Assessment & Plan: -BP stable -hypotensive on admission- hold bp meds for now Code(s): I10 - ESSENTIAL (PRIMARY) HYPERTENSION (8) Hypotension Current Visit: Yes Status: Acute Assessment & Plan: -On admission Likely secondary to volume depletion and infection - now stable -Monitor hemodynamics closely. -Continue IV fluids. -Reassess if pressor support is needed should BP not respond. Code(s): I95.9 - HYPOTENSION, UNSPECIFIED (9) Leukocytosis, unspecified Current Visit: Yes Status: Acute Assessment & Plan: -WBC 13.8 -11.6; likely reactive -trend -UA, cxr with no acute findings -lactic acid WNL -Bcult with NGTD Code(s): D72.829 - ELEVATED WHITE BLOOD CELL COUNT, UNSPECIFIED (10) Thrombocytopenia Current Visit: Yes Status: Acute Assessment & Plan: -Mild, likely infection-related. -Monitor CBC daily. -No intervention required unless platelets drop further (11) Transaminitis Current Visit: Yes Status: Acute Assessment & Plan: -AST/ALT elevated, now trending down. Likely viral. -Continue trending LFTs. -Abdominal ultrasound reviewed; monitor for hepatic complications. Code(s): R74.01 - ELEVATION OF LEVELS OF LIVER TRANSAMINASE LEVELS (12) Frontal headache Current Visit: Yes Status: Acute Assessment & Plan: -Frontal, associated with viral syndrome, without neurologic red flags -Symptomatic control with acetaminophen. -Monitor neuro exam. -If worsening or focal deficits develop, consider CT head LP to rule out meningitis or intracranial pathology. VTE: plavix/asa/scd PPI Protonix Dispo 1-3 days Code status full code Code(s): R51.9 - HEADACHE, UNSPECIFIED
[2024-11-02 06:02] LABS: Calcium 8.1 mg/dL (8.4-10.2); Carbon Dioxide 24.0 mmol/L (22-30); Creatinine 1 1.18 mg/dL (0.66-1.25); EST GLOMERULAR FILTRATION RATE 68.5 ML/MIN; Glucose 82.0 mg/dL (74-106); Potassium 4.1 mmol/L (3.5-5.1); SGOT/AST 58.0 U/L (17-59); SGPT/ALT 55.0 U/L (0-50); Total Protein 5.2 g/dL (6.3-8.2)
[2024-11-02 07:01] LABS: Total Cells Counted 100
[2024-11-02 07:27] VITALS: TEMP 97.5; O2SAT 94
[2024-11-02 09:49] VITALS: BP 126/82; PULSE 94; RESP 22
--- NOTE | 2024-11-02 10:16 | XRAY ---
Indication: Elevated liver function test. Cholecystectomy. Two-dimensional right upper quadrant abdominal sonogram performed. Comparison: None Pancreas poorly visualized due to overlying bowel gas. Visualized liver appears homogeneous in echogenicity. No hepatomegaly or ascites. Gallbladder surgically absent. Common bile duct measures 5.4 mm. No intrahepatic biliary distention. Right kidney measures 12.2 x 6.0 x 4.6 cm with 5.8 cm upper pole simple exophytic cyst. Impression: Nonvisualization pancreas. Cholecystectomy. Right renal cyst.
--- NOTE | 2024-11-02 11:35 | PCM.DS ---
Discharge Summary Date of Admission: 10/31/24 23:10 Date of Discharge: 11/02/24 Admitting Physician: TEMITOPE SMITH MD Primary Care Provider: KRISTY,DANNIELLE Allergies Allergies clindamycin Adverse Reaction (Verified 08/10/24 11:44) Nausea and Vomiting hydrocodone Adverse Reaction (Verified 08/10/24 11:44) Nausea and Vomiting Hospital Summary - Hospital Course Hospital Course: Mr. Browne is a 64-year-old male with a history of hypertension, hyperlipidemia, and prior coronary artery bypass grafting (CABG), who presented with one week of generalized fatigue, myalgias, persistent fever, and cough producing clear sputum. Despite oral Cefdinir started by his PCP for presumed sinusitis, his symptoms persisted. He reported poor oral intake, mild frontal headaches, and neck discomfort but denied chest pain, shortness of breath, or gastrointestinal complaints. On arrival, he was mildly tachycardic and intermittently febrile (Tmax 100.2F). Labs were notable for acute kidney injury with creatinine 2.36 improving to 1.51 after IV hydration, leukocytosis at 13.8 downtrending to 11.6, mild hyponatremia at 133, and transient transaminitis (AST/ALT 64/78 - 51/60). Chest X-ray showed no acute process; urinalysis was negative; abdominal ultrasound showed a right renal cyst, prior cholecystectomy, and no hepatomegaly or ascites. Respiratory viral panel was negative, and blood cultures remain negative to date. The overall presentation is most consistent with a systemic inflammatory process of uncertain etiologyviral versus bacterial infection remains unclear. His renal function, hemodynamics, and transaminitis improved with supportive care. He will be discharged in stable condition with a prescription for oral Keflex and instructions for close outpatient follow-up to ensure resolution and monitor labs and cultures. Discharge Note New Medications: Keflex 500mg TID x 5 days Follow Up: PCP Results pending: Blood cultures I spent 35 minutes [id number] with the patient on the day of discharge performing discharge exam, discussing hospital stay and discharge instructions with patient and caregivers, preparation of discharge records, prescriptions & referral forms and addressing any questions/concerns the patient had as documented above. - Vitals & Intake/Output Vital Signs: Vital Signs Temperature 97.5 F 11/02/24 07:26 Pulse Rate 94 H 11/02/24 09:49 Respiratory Rate 22 11/02/24 09:49 Blood Pressure 126/82 11/02/24 09:49 O2 Sat by Pulse Oximetry 94 L 11/02/24 07:26 Intake & Output: Intake & Output 10/30/24 10/31/24 11/01/24 11/02/24 11:59 11:59 11:59 11:59 Intake Total 300 3073 Output Total 775 Balance 300 2298 Weight 75.8 kg - Lab Result Diagrams: 11/02/24 04:14 11/02/24 04:14 Lab Results-Last 24 Hrs: Lab Results-Last 24 Hours 10/31/24 11/02/24 11/02/24 Range/Units 17:25 04:14 04:14 WBC 12.4 H (4.23-9.07) x10^3/uL RBC 4.91 (4.63-6.08) x10^6/uL Hgb 14.6 (13.7-17.5) g/dL Hct 44.6 (40.1-51.0) % MCV 90.8 (79.0-92.2) fL MCH 29.7 (25.7-32.2) pg MCHC 32.7 (32.3-36.5) g/dL RDW 12.9 (11.6-14.4) % Plt Count 120 L (163-337) x10^3/uL MPV 9.8 (9.4-12.4) fL Segmented Neutrophils 40 (34.0-67.9) % Lymphocytes (Manual) 33 (21.8-53.1) % Monocytes (Manual) 6 (5.3-12.2) % Eosinophils (Manual) 2 (0.8-7.0) % Basophils (Manual) 1 (0.2-1.2) % Atypical Lymphocytes 18 % Platelet Estimate DECREASED (NORMAL) RBC Morphology NORMAL Smear Path Review Sodium 133 L (135-145) mmol/L Potassium 4.1 (3.5-5.1) mmol/L Chloride 105 (98-107) mmol/L Carbon Dioxide 24 (22-30) mmol/L Anion Gap 7.5 (5-15) MEQ/L BUN 17 (9-20) mg/dL Creatinine 1.18 (0.66-1.25) mg/dL Estimated GFR 68.5 ML/MIN Glucose 82 (74-106) mg/dL Calcium 8.1 L (8.4-10.2) mg/dL Total Bilirubin 0.80 (0.2-1.3) mg/dL AST 58 (17-59) U/L ALT 55 H (0-50) U/L Alkaline Phosphatase 83 (38-126) U/L Serum Total Protein 5.2 L (6.3-8.2) g/dL Albumin 2.6 L (3.5-5.0) g/dL Micro Results-Entire Visit: Microbiology 10/31/24 18:25 Blood Culture - Preliminary Blood 10/31/24 17:56 Blood Culture - Preliminary Blood - Radiology Exams Ordered Rad Exams-Entire Visit: Radiology Procedures Category Date Time Status ABDOMINAL-LIMITED [US] Urgent Exams 11/02/24 07:00 Completed CHEST 1 VIEW (PORTABLE) Stat Exams 10/31/24 17:31 Completed Discharge Exam General Appearance: no apparent distress Neurologic Exam: alert, oriented x 3, cooperative Eye Exam: PERRL Ears, Nose, Throat Exam: normal ENT inspection Neck Exam: normal inspection Respiratory Exam: normal breath sounds, lungs clear Cardiovascular Exam: regular rate/rhythm, normal heart sounds Gastrointestinal/Abdomen Exam: soft, normal bowel sounds Male Genitalia Exam: deferred Rectal Exam: deferred Back Exam: normal inspection Extremity Exam: normal inspection Skin Exam: normal color Final Diagnosis/Problem List - Final Discharge Diagnosis/Problem (1) Acute renal injury Current Visit: Yes Status: Acute Assessment & Plan: Secondary to dehydration, resolved with IV fluids Encourage oral hydration Avoid nephrotoxic agents Outpatient CMP follow-up Code(s): N17.9 - ACUTE KIDNEY FAILURE, UNSPECIFIED (2) Other general symptoms and signs Current Visit: Yes Status: Acute Assessment & Plan: Systemic inflammatory illness, uncertain etiology (viral vs bacterial) Viral panel negative; blood cultures pending Discharged on Keflex for empiric bacterial coverage Supportive care with rest, hydration, acetaminophen for fever Outpatient follow-up with PCP within 35 days to reassess and review culture results Code(s): R68.89 - OTHER GENERAL SYMPTOMS AND SIGNS (3) Sinusitis Current Visit: Yes Status: Acute Assessment & Plan: Cefdinir discontinued during admission Keflex prescribed on discharge Supportive measures with fluids, saline spray, and analgesics Code(s): J32.9 - CHRONIC SINUSITIS, UNSPECIFIED (4) Coronary artery disease Current Visit: Yes Status: Acute Assessment & Plan: Stable; no acute ischemic symptoms Continue home medications Code(s): I25.10 - ATHSCL HEART DISEASE OF [place] CORONARY ARTERY W/O ANG PCTRS (5) Dehydration Current Visit: Yes Status: Acute Assessment & Plan: Corrected with IV fluids during admission Encourage continued oral hydration at home Code(s): E86.0 - DEHYDRATION (6) HLD (hyperlipidemia) Current Visit: Yes Status: Acute Assessment & Plan: Continue home statin Code(s): E78.5 - HYPERLIPIDEMIA, UNSPECIFIED (7) HTN (hypertension) Current Visit: Yes Status: Acute Assessment & Plan: Hypotensive on admission, antihypertensive losartan held can resume cardizem Monitor BP at home and keep log for follow up with PCP for further management Code(s): I10 - ESSENTIAL (PRIMARY) HYPERTENSION (8) Hypotension Current Visit: Yes Status: Acute Assessment & Plan: Secondary to dehydration and illness Resolved with fluids; no pressors required Reinforce adequate oral intake Code(s): I95.9 - HYPOTENSION, UNSPECIFIED (9) Leukocytosis, unspecified Current Visit: Yes Status: Acute Assessment & Plan: WBC 13.8 - 11.6 Likely reactive to infection/inflammation Discharged with Keflex 500mg TID x 5 days; follow repeat CBC as outpatient Code(s): D72.829 - ELEVATED WHITE BLOOD CELL COUNT, UNSPECIFIED (10) Thrombocytopenia Current Visit: Yes Status: Acute Assessment & Plan: Likely infection-related Monitor with outpatient CBC (11) Transaminitis Current Visit: Yes Status: Acute Assessment & Plan: AST/ALT improving Abdominal ultrasound without acute hepatic findings Recheck LFTs in 12 weeks outpatient Code(s): R74.01 - ELEVATION OF LEVELS OF LIVER TRANSAMINASE LEVELS (12) Frontal headache Current Visit: Yes Status: Acute Assessment & Plan: Associated with systemic illness Symptomatic management with acetaminophen Return precautions for worsening or neurologic symptoms Code(s): R51.9 - HEADACHE, UNSPECIFIED - Discharge Discharge Date: 11/02/24 Disposition: Home, Self-Care Condition: Stable Prescriptions: New Cephalexin Mh 500 mg [Keflex 500 mg] 500 mg PO TID 5 Days #15 cap Continue Aspirin EC 81 mg [Ecotrin 81 mg] 81 mg PO DAILY Nitroglycerin 0.4 mg Tablet [Nitrostat 0.4 MG Tablet] 0.4 mg SL UD PRN PRN Reason: Chest Pain Clopidogrel Bisulfate [PLAVIX Tablet] 75 mg PO DAILY Atorvastatin Calcium 40 tab PO UD dilTIAZem HCL [Diltiazem HCl] 1 tab PO BID Ranolazine 500 MG [Ranexa 500 MG] 500 mg PO BID Benzonatate 100 mg PO TID Discontinued Cefdinir 300 mg [Omnicef 300 mg] 300 mg PO BID Sulfamethoxazole/Trimethoprim [Sulfamethoxazole-Tmp Ss Tablet] 1 each PO BID Valsartan 160 mg PO DAILY Instructions: Acute kidney injury Additional Instructions: Monitor BP at home and keep a log for PCP appointment - hold valsartan until follow up appt- contact provider if BP is elevated prior to appt Will need repeat CMP and CBC next week Follow up with: ANGELA PAGAN [ACTIVE STAFF, FAMILY PRACTICE] - 11/09/24 10:00 am Forms: Discharge Instructions
== END 2024-11-02 12:00 | disposition home or self-care (01) ==
LOC: ED 17:05 → ICU 23:10
PROVIDERS: ADMIT Internal Medicine; ATTEND Internal Medicine
DX: N17.9 Acute kidney failure, unspecified (principal); R68.89 Other general symptoms and signs; J32.9 Chronic sinusitis, unspecified; I25.10 Atherosclerotic heart disease of native coronary artery without angina pectoris; E86.0 Dehydration; E78.5 Hyperlipidemia, unspecified; I10 Essential (primary) hypertension; R05.8 Other specified cough; I95.9 Hypotension, unspecified; D72.829 Elevated white blood cell count, unspecified; D69.6 Thrombocytopenia, unspecified; R74.01 Elevation of levels of liver transaminase levels; R51.9 Headache, unspecified; Z79.01 Long term (current) use of anticoagulants; Z79.899 Other long term (current) drug therapy; Z95.0 Presence of cardiac pacemaker
CPT/HCPCS: 36415; 71045; 76705; 80053; 81001; 83605; 84484; 85025; 87040; 87637; 87651; 93005; 93041; 93268; 96360; 96361; 99213; 99285; G0378; Q3014